=== PATIENT | male | born 1935 | race Caucasian/White ===

== ENCOUNTER → 2016-10-17 | Outpatient (CLI) | payer OTHER ==
--- NOTE | 2016-10-17 11:08 | US ---
Bilateral Duplex Carotid Sonography Clinical Indications: 80-year-old male with a history of hypertension, prior tobacco use, diabetes, a nd of prior stroke/TIA. Evaluate for hemodynamically significant stenosis. Technique: The cervical portions of the carotid and vertebral arteries were imaged and interrogated by color and pulsed Doppler. Spectral analysis was performed. Cine clips are stored on PACS. Comparison Study: Carotid Doppler sonography, dated April 18, 2008. Findings: Right Carotid Artery: The common carotid artery, bifurcation, and origin of the internal and externa l carotid artery are well imaged. Doppler velocity estimates and color Doppler spectra are evaluated . There is extensive atherosclerotic calcific plaque involving the common carotid artery, carotid bul b and bifurcation, and the proximal internal and external carotid arteries with areas of acoustic sha dowing. The peak systolic velocity in the right internal carotid artery is 180 cm/sec, the peak diast olic velocity of 40 cm/sec. As a point of reference, on the prior study, the peak systolic velocity w as 96 cm/sec. This would indicate a current moderate mean diameter stenosis of the least 60%. There i s also severe stenosis of the external carotid artery with a peak systolic velocity of 223 cm/sec. Th e ICA to CCA systolic ratio is mildly elevated at 2.1, and the diastolic ratio is normal. Left Carotid Artery: The common carotid artery, bifurcation, and origin of the internal and external carotid artery are well imaged. Doppler velocity estimates and color Doppler spectra are evaluated, and as on the contralateral side, there is extensive atherosclerotic calcific plaque involving the c ommon carotid artery, bulb and bifurcation, and the proximal internal and external carotid arteries. The peak systolic velocity in the internal carotid artery is 130 cm/sec, with a peak diastolic veloci ty 36 cm/sec. As a point of reference, on the previous exam, the peak systolic velocity internal allen tid artery was 73 cm/sec. There is a severe stenosis of the left external carotid artery, with a peak systolic velocity of 256 cm/sec. The ICA to CCA systolic and diastolic ratios are normal. Vertebral Arteries: Antegrade flow is shown by pulsed Doppler of each vertebral artery. The peak sys tolic velocity in the right vertebral artery is 53 cm/sec, and in the left vertebral artery is 41 cm/ sec. Impression: 1. Extensive bilateral calcific atherosclerotic plaque with progressive stenoses since the previous s tudy in April 2008, with at least a 60% mean diameter stenosis of the right ICA, and at least a 50% me an diameter stenosis of the left ICA. 2. Severe stenoses of the external carotid arteries. 3. Patent, antegrade vertebral arteries. Measurement of carotid stenosis is based on velocity parameters that correlate the residual internal carotid diameter with [place] Symptomatic Carotid Endarterectomy Trial (NASCET) based stenosis levels.
== END ==
LOC: FIMAGING 09:19
PROVIDERS: ATTEND Internal Medicine Endocrinology, Diabetes & Metabolism
DX: I65.23 Occlusion and stenosis of bilateral carotid arteries (principal)

== ENCOUNTER → 2016-11-22 | Outpatient (CLI) | payer OTHER ==
--- NOTE | 2016-11-22 10:01 | US ---
"Ultrasound Abdomen Retroperitoneum, Complete Clinical Indications: N18.3, chronic kidney disease, stage 3; GFR 30-59 mL/min. Comparison: None. Findings: The right kidney measures 11.9 x 6 x 5.2 cm. The left kidney measures 10.9 x 5.2 x 4.6 cm . Both kidneys demonstrate no hydronephrosis, definite shadowing calculi, or perinephric fluid. Righ t renal cortical thickness 1.9 cm and left renal cortical thickness 1.6 cm. In the superolateral uppe r pole left kidney there is a solid, minimally hyperechoic mass with vascular flow measuring 3.1 x 3 x 2.7 cm. Images of the bladder demonstrate patent bilateral ureteral jets with color flow imaging. Prevoid evens dder volume 46 mL. Postvoid bladder residual is 9 mL. No shadowing bladder calculi. Impression: 1. No hydronephrosis. 2. Left kidney upper pole superolateral cortical solid 3.1 x 3 x 2.7 cm mass suspicious for renal aditi l carcinoma. Recommend CT or MRI for further evaluation, or if unable to get contrast, consider CT-gu ided biopsy. A Follow-Up Required test result has been communicated via the [facility] | Critical Result syst em on 11/22/2016 9:50, Message ID [id number]."
== END ==
LOC: FIMAGING 07:41
PROVIDERS: ATTEND Internal Medicine Nephrology
DX: N18.3 Chronic kidney disease, stage 3 (moderate) (principal); R93.422 Abnormal radiologic findings on diagnostic imaging of left kidney

== ENCOUNTER → 2016-12-23 | Outpatient (CLI) | payer OTHER | LOC: BHFA 10:45 | PROVIDERS: ATTEND Internal Medicine Cardiovascular Disease | DX: I25.10 Atherosclerotic heart disease of native coronary artery without angina pectoris (principal); I10 Essential (primary) hypertension ==

== ENCOUNTER → 2017-01-11 | Outpatient (CLI) | payer OTHER ==
[~2017-01-11] MED LIST: GADOBUTROL 10 ML VIAL IVP ONE
[2017-01-11 08:43] LABS: CREATININE 1.7 mg/dL (0.7-1.3)
== END ==
LOC: FIMAGING 07:38
PROVIDERS: ATTEND Specialist
DX: N28.89 Other specified disorders of kidney and ureter (principal); N28.1 Cyst of kidney, acquired; K76.89 Other specified diseases of liver
CPT/HCPCS: 74183; A9585

== ENCOUNTER 2017-05-07 08:44 | Inpatient (IN) | payer OTHER ==
[2017-05-07] MEDS ORDERED: oxyCODONE IR 5 MG TAB PO PRN (12:23)
[2017-05-07] MEDS ORDERED: ACETAMINOPHEN 325 MG TAB PO PRN (12:23)
[2017-05-07] MEDS ORDERED: ONDANSETRON DISINTEGRATING 4 MG TAB PO PRN (12:23)
[2017-05-07] MEDS ORDERED: ONDANSETRON 4 MG/2 ML VIAL IVP PRN (12:23)
[2017-05-07] MEDS ORDERED: D50W 25 GM/50 ML SYR IVP PRN (12:26)
[2017-05-07] MEDS ORDERED: D10W 250 ML PRN HYPOGLYCEMIA IV (13:00)
--- NOTE | 2017-05-07 13:31 | GHP ---
[f rep st] HISTORY AND PHYSICAL DATE OF ADMISSION: 05/07/2017 CHIEF COMPLAINT: Direct admission from [facility]. HISTORY OF PRESENT ILLNESS: This is an 81-year-old man, history of nonischemic dilated cardiomyopat hy, diabetes, and paroxysmal atrial fibrillation, who is sent in by Cardiology. He was seen yesterd ay by Dr. Briones who ordered labs, noted that his creatinine had worsened, thus sent him in for admis yaquelin. He reports a 30-pound weight gain over the last few months. He was previously on furosemide, it is unclear whether he has been compliant with that. He knows he stopped it for a few days as he was quite fatigued, but says that that was only for a few days. He has not changed his diet. He h ad also stopped his Eliquis and metoprolol for a few days as well. He has not had any chest pain. He has ongoing shortness of breath. It is unclear if this is worse. He gets quite dyspneic with an y exertion. He does note lower extremity edema, scrotal edema, as well as increased abdominal girth . PAST MEDICAL/SURGICAL HISTORY: 1. Coronary artery disease, no interventions. He had a catheterization in 2015. 2. Carotid artery disease with modest plaque. Sixty percent stenosis at the right ICA and 50% of t he left ICA. 3. Hyperlipidemia. 4. Hypertension. 5. Nonischemic cardiomyopathy which has improved. Initial echo in February of 2015 with an EF of 35% wh ich improved to 50% on his last echo in December of 2016. 6. Paroxysmal atrial fibrillation. 7. Carpal tunnel release. 8. Hernia. 9. Lumbar surgery. 10. Shoulder surgery. MEDICATIONS: Please see medication reconciliation. ALLERGIES: EVERT inhibitors. FAMILY HISTORY: His mother had a myocardial infarction. His brother had congenital heart disease. SOCIAL HISTORY: He does not drink. He does not smoke. He quit in 1959. He owns a [employer]. REVIEW OF SYSTEMS: A 10-point review of systems is conducted and is negative except per HPI. PHYSICAL EXAM: VITAL SIGNS: Blood pressure 115/58, heart rate 53, respiration rate 18, saturating 96% on room air. GENERAL: The patient is a pleasant man who appears comfortable, in no acute distr ess. HEENT: Normocephalic, atraumatic. CARDIOVASCULAR: Regular rate and rhythm. There are no mu rmurs, rubs, or gallops. PULMONARY: Crackles most predominant at the left base. He is not in any respiratory distress. ABDOMEN: Slightly distended, firm to palpation, though he is nontender with deep palpation. SKIN: No rash. : No Dudley. NEUROLOGIC: Alert and oriented x3, moving all ext remities. PSYCHIATRIC: Normal mood and affect. EXTREMITIES: 3+ bilateral lower extremity edema. LABORATORY DATA: Creatinine is 2.1. Potassium is 4.5, BUN is 62, his BNP is 6890. These are labs from yesterday. DATA: I reviewed his chart, including Dr. Briones's last note. IMPRESSION AND PLAN: This is an 81-year-old man with cardiovascular disease, presents with volume o verload. 1. Volume overload: This is likely acute on chronic congestive heart failure. Initial read of his echocardiogram shows his ejection fraction has not changed. Certainly may be a diastolic component . Seems to be right-sided more than left-sided. May be due to pulmonary hypertension with sleep ap macy. Again, echo is really pending at this point. We will need to diurese him carefully per Cardio logy. We will involve Renal if necessary as his creatinine is currently 2.1, up from 1.7 in January. We will check a chest x-ray, as well as EKG. We will follow daily weights and strict intakes and o utputs. 2. Diabetes mellitus type 2: We will continue his insulin, hold his oral agents, add sliding scale insulin onto his glargine. We will check blood sugars as well. 3. Paroxysmal atrial fibrillation: He is currently regular. EKG is pending. He is on Eliquis as well as metoprolol. 4. Chronic kidney disease: Recent creatinines have ranged from 1.4-2.2. He is currently 2.1 at th e high end of that range. We will follow very closely. 5. Hypertension: I have held his losartan and hydrochlorothiazide for now, he will likely need savannah e antihypertensives. 6. Hyperlipidemia: Simvastatin. 7. Coronary artery disease: Aspirin, Eliquis, metoprolol, simvastatin. 8. Code status is full. /[id number]/MODL
--- NOTE | 2017-05-07 13:42 | CPEKG ---
Heart Rate: 52 RR Interval: 1154 P-R Interval: 252 QRSD Interval: 110 QT Interval: 472 QTC Interval: 439 P Alderson: 64 QRS Alderson: -48 T Wave Alderson: 125 EKG Severity - ABNORMAL ECG - EKG Impression: SINUS ARRHYTHMIA, RATE 45-63 EKG Impression: FIRST DEGREE AV BLOCK EKG Impression: LAD, CONSIDER LEFT ANTERIOR FASCICULAR BLOCK EKG Impression: LOW VOLTAGE IN FRONTAL LEADS EKG Impression: CONSIDER ANTERIOR INFARCT Electronically Signed By: Yon Heredia 07-May-2017 14:55:15
[2017-05-07 13:49] LABS: % IMMATURE GRANULYOCYTES 0.3 % (0.0-1.1); ABSOLUTE IMMATURE GRANULOCYTES 0.02 10^3/uL (0.00-0.10); ADD DIFF? NO; ADD MORPH? NO; ADD SCAN? NO; ATYPICAL LYMPHOCYTE FLAG 0 (0-99); FRAGMENT RBC FLAG 0 (0-99); HEMATOCRIT 39.9 % (40.0-51.0); HEMOGLOBIN 13.1 g/dL (13.7-17.5); LEFT SHIFT FLG 0 (0-99); LIPEMIA HEMOLYSIS FLAG 80 (0-99); MEAN CELL HEMOGLOBIN 33.9 pg (27.9-34.1); MEAN CELL HEMOGLOBIN CONCENTR. 32.8 g/dL (32.4-36.7); MEAN CELL VOLUME 103.4 fL (81.5-99.8); MEAN PLATELET VOLUME 9.9 fL (8.7-11.7); PLATELET CLUMPS FLAG 0 (0-99); PLATELET COUNT 210 10^3/uL (150-400); RED BLOOD CELL COUNT 3.86 10^6/uL (4.40-6.38); RED CELL DISTRIBUTION WIDTH 13.7 % (11.5-15.2)
[2017-05-07 13:53] LABS: INR 1.63 (0.83-1.16); PROTIME(PATIENT) 19.4 SEC (12.0-15.0)
[2017-05-07 13:55] LABS: ALANINE AMINOTRANSFERASE 47 IU/L (21-72); ALBUMIN 4.1 g/dL (3.5-5.0); ALKALINE PHOSPHATASE 169 IU/L (38-126); ANION GAP 16 mEq/L (8-16); ASPARTATE AMINOTRANSFERASE 64 IU/L (17-59); BILIRUBIN,TOTAL 1.1 mg/dL (0.1-1.4); CALCIUM 9.1 mg/dL (8.5-10.4); CARBON DIOXIDE 19 mEq/l (22-31); CHLORIDE 105 mEq/L (97-110); GLOMERULAR FILTRATION RATE 32; GLUCOSE 94 mg/dL (70-100); POTASSIUM 4.3 mEq/L (3.5-5.2); SODIUM 140 mEq/L (134-144); TOTAL PROTEIN 6.9 g/dL (6.3-8.2)
[2017-05-07 14:07] LABS: TROPONIN I 0.093 ng/mL (0-0.034)
--- NOTE | 2017-05-07 14:11 | ECHO ---
[id number] + + [address] : : [place] [address] : : [phone] + + Adult Echocardiographic Report + -------+ :Name: JOSUÉ BULLARD WStudy Date: 05/07/2017 12:13 PM : : Hospital Admission Number: [id number] Locati on: 207: :: 1935 Gender: Male Height: 68 in : :Age: 81 yrs Race: WH Weight: 243 lb : :Reason For Study: Weight gain and SOB : : BSA: 2.2 meter s2 : + -------+ MMode/2D Measurements \T\ Calculations IVSd: 1.5 cm LVIDd: 4.6 cm FS: 25.6 % Ao root diam: LVPWd: 1.2 cm LVIDs: 3.5 cm EDV(Teich): 3.6 cm 99.7 ml LA dimension: ESV(Teich): 4.6 cm 49.4 ml EF(Teich): 50.4 % LVLd ap4: 8.8 cm SV(MOD-sp4): EDV(MOD-sp4): 37.0 ml 73.0 ml LVLs ap4: 7.5 cm ESV(MOD-sp4): 36.0 ml EF(MOD-sp4): 50.7 % Normal Measurement Values: + + :LVIDd (3.5-5.7cm) IVSd (0.6-1.1cm) LVPWd (0.6-1.1cm) Aortic Root (2.0-3.7cm)Left Atrium (1.5-4.0cm): :LV Vol(d) (76-115ml) LV Vol(s) (29-48ml) Ejec Fraction (50-65%)PV Andre (0.6- 1.2m/s) TV Andre (0.4-1.0m/s) : :MV E Andre (0.8-1.0m/s)MV A Andre (0.3-1.0m/s)LVOT Andre (0.7-1.2m/s) Asc Ao Andre ( 0.9-1.8m/s) : + + Doppler Measurements \T\ Calculations MV E max andre: 121.4 cm/sec Ao mean P.4 mmHg TR max andre: 222.6 cm/sec MV A max andre: 25.2 cm/sec Ao V2 mean: 119.3 cm/secTR max P.8 mmHg MV E/A: 4.8 Ao V2 VTI: 35.3 cm RAP systole: 5.0 mmHg RVSP(TR): 24.8 mmHg Left Ventricle The left ventricle is normal in size. There is mild concentric left ventricular hypertrophy. Left ventricular systolic function is normal. There is Doppler evidence for diastolic dysfunction. Ejection Fraction = 55-60%. LV base inferior wall appears akinetic. All remaining LV segments have normal motion. Right Ventricle The right ventricle is normal in size and function. Atria The left atrium is mildly dilated. The right atrium is mild to moderately dilated. The interatrial septum is intact with no evidence for an atrial septal defect. Mitral Valve There is mild mitral annular calcification. There is no evidence of mitral valve prolapse. There is no mitral valve stenosis. There is mild mitral regurgitation. Tricuspid Valve Normal tricuspid valve. Right ventricular systolic pressure is normal. There is moderate tricuspid regurgitation. Aortic Valve The aortic valve is trileaflet. The aortic valve opens well. Mildy aortic valve calficiation. There is no aortic stenosis. Trace aortic regurgitation. Pulmonic Valve The pulmonic valve is normal in structure and function. There is no pulmonic valvular regurgitation. Great Vessels The aortic root is normal size. Pericardium/Pleural There is no pericardial effusion. Conclusion A complete two-dimensional transthoracic echocardiogram was performed (2D, M-mode, Doppler and color flow Doppler). Left ventricular systolic function is normal. Ejection Fraction = 55-60%. LV basilar inferior wall appears akinetic. All remaining LV segments have normal motion. There is mild concentric left ventricular hypertrophy. There is Doppler evidence for diastolic dysfunction. The left atrium is mildly dilated. The right atrium is mild to moderately dilated. Mildy aortic valve calficiation. Trace aortic regurgitation. There is mild mitral annular calcification. There is mild mitral regurgitation. There is moderate tricuspid regurgitation. Right ventricular systolic pressure is normal at 24.8 mmHg. Final Reading Physician: Bright Carreon signed on 05/07/2017 02:10 PM Ordering Physician: Ozzy Cox Performed By: Juliana Foster, RESHMA
[2017-05-07] MEDS ORDERED: FUROSEMIDE 40 MG/4 ML VIAL IVP ONE (14:12)
[2017-05-07] MEDS ORDERED: POTASSIUM CL 20 MEQ TAB PO ONE (14:16)
[2017-05-07] MEDS ORDERED: PROTOCOL POTASSIUM 1 DOSE MISC PRN (14:17)
[2017-05-07] MEDS ORDERED: PROTOCOL MAGNESIUM 1 DOSE IV PRN (14:17)
[2017-05-07] MEDS: FUROSEMIDE 100 MG in D5W 100 ML IV SCH ×2 (14:48→22:52)
--- NOTE | 2017-05-07 17:23 | PDCARPN ---
Cardiology Progress Note Chief Complaint: Patient reports increased swelling, and shortness of breath with exertion. Assessment/Plan: Assessment: Please see Dr. Briones office note from 05/06/2017, to serve as cardiology consultation. 81-year-old male with known history paroxysmal atrial fibrillation, previous nonischemic dilation cardiomyopathy which resolved with medical therapy, hypertension, hyperlipidemia, type 2 diabetes mild non flow limiting carotid artery disease. Most recent cardiac catheterization was 03/2016 , showing no obstructive disease. Limited echocardiogram done June of 2016 showing mild concentric LVH, with improvement of ejection fraction to 50%. Seen in office yesterday, reporting feeling poorly for several months, had self discontinued 3 of his cardiac medications (Eliquis, metoprolol, Lasix) with his thought process of the drugs were causing him to feeling poorly. Has noted a 30 lb weight gain over the last few months. Reporting ongoing orthopnea , sleeping in a recliner. Has significant increased edema, scrotal edema, abdomen girth, and cough. He has had no chest pressure or pain. He was offered hospital admission yesterday, but refused. Laboratory studies were drawn, results came back today. Showing decreased CO2, BUN 62, creatinine 2.1, BNP 6890. Results called our office today, and again offered for hospital admission for further evaluation. In which patient agreed. Today, upon hospital admission, patient continues to deny of any chest pressure or pain. Continues to have dyspnea on exertion, walking less than 200 feet up, having to stop for rest. Patient's BUN creatinine essentially unchanged,. BNP more elevated at 7090. Troponin 0.093. EKG showing sinus arrhythmia, first- degree AV block, left axis deviation, low voltage in frontal leads, possible anterior infarction, poor R-wave progression. Echo done today showing EF of 55- 60% with mild LV basilar inferior wall you akinesis, mild concentric LVH, diastolic dysfunction, mildly dilated LA, [id number] dilated RA, mild aortic valve calcification, trace AI, mild mitral annular calcification, mild MR moderate TR, RVSP 24.8 mm Hg. Chest x-ray showed cardiomegaly a without heart failure. He has significant JVD on examination 8 cm at 45 angle. +3 peripheral edema bilateral lower extremities to thighs, scrotal edema, abdomen firm. Plan: 1. Anasarca: Echocardiogram shows no significant change in ejection fraction, potentially diastolic dysfunction contributing to. Patient with known history of discontinuing diuretic therapy in the beginning of April. 30 lb weight gain. JVD and significant peripheral and abdominal edema. BUN 60, creatinine 2.1 ( patient's average range in the past hospitalization range 1.7 to 2.1). After discussing with Dr. Araujo, we will have the patient get a 40 mg IV Lasix post today, started on an ice V Lasix drip at 10 mg an hour. We will have to closely observe his renal function. Placed on electrolyte replacement protocol. Strict I and O. Daily weights 2. Chronic kidney disease with renal insufficiency, BUN and creatinine elevated as above, will monitor closely. 3. Hypertension: Patient has been continued on home dose beta-lucio, agree with hospital services of discontinuing losartan and hydrochlorothiazide why we diuresed patient. Note patient was noted to be mildly bradycardic yesterday, and Dr. Briones has decreased his metoprolol dose down to 25 mg p.o. twice daily. 4. Elevated troponin: Mildly elevated troponin, echocardiogram showed mild LV basilar inferior wall akinesis, has had a coronary angiogram in 2015 showing no significant flow limiting disease. Continue on home dose aspirin therapy. Beta-lucio as above, cycle troponin levels. Potentially elevation is due to flow mismatch due to volume status. 5. hyperlipidemia: Continue on home statin. 6. Paroxysmal atrial fibrillation: Currently in sinus rhythm, metoprolol as above, continue on Eliquis for anticoagulation. 7. DM type 2: Being followed by hospital services. 05/07/17 17:22 Subjective: Patient denies of any chest pressure, pain, lightheadedness, palpitations, near- syncope, or syncopal events. Reports ongoing dyspnea on exertion, weight gain of 30 lb, and orthopnea. Reviewed/Discussed With: hospitalist (Dr Peter), other (Dr Araujo) Objective: Vital Signs (8 Hrs) Temp Pulse Resp BP Pulse Ox 05/07/17 15:53 36.5 C 54 L 16 129/74 H 95 05/07/17 11:10 53 L 18 115/58 L 96 Intake/Output (24 Hrs) 05/06/17 05/07/17 05/08/17 05:59 05:59 05:59 Intake Total 300 Output Total 1150 Balance -850 Intake: Oral (ml) 300 Output: Urine (ml) 1150 Urinal 1150 Other: Weight 110.5 kg Number of Voids Toilet 3 Result Diagrams: 05/07/17 11:47 05/08/17 03:43 Cardiac Labs: Cardiac Lab Results (72 Hrs) 05/07/17 05/07/17 05/07/17 14:14 11:47 11:47 WBC RBC Hgb Hct MCV MCH MCHC RDW Plt Count MPV Neut % (Auto) Lymph % (Auto) Colbert % (Auto) Eos % (Auto) Baso % (Auto) Nucleat RBC Rel Count Absolute Neuts (auto) Absolute Lymphs (auto) Absolute Monos (auto) Absolute Eos (auto) Absolute Basos (auto) Absolute Nucleated RBC Immature Gran % Immature Gran # PT 19.4 H INR 1.63 H Sodium 140 Potassium 4.3 Chloride 105 Carbon Dioxide 19 L Anion Gap 16 BUN 61 H Creatinine 2.0 H Estimated GFR 32 Glucose 94 Calcium 9.1 Magnesium 2.1 Total Bilirubin 1.1 AST 64 H ALT 47 Alkaline Phosphatase 169 H Troponin I 0.093 H NT-Pro-B Natriuret Pep 7090 H Total Protein 6.9 Albumin 4.1 05/07/17 11:47 WBC 7.21 RBC 3.86 L Hgb 13.1 L Hct 39.9 L MCV 103.4 H MCH 33.9 MCHC 32.8 RDW 13.7 Plt Count 210 MPV 9.9 Neut % (Auto) 75.1 H Lymph % (Auto) 11.8 L Colbert % (Auto) 8.9 Eos % (Auto) 3.3 Baso % (Auto) 0.6 Nucleat RBC Rel Count 0.0 Absolute Neuts (auto) 5.42 Absolute Lymphs (auto) 0.85 L Absolute Monos (auto) 0.64 Absolute Eos (auto) 0.24 Absolute Basos (auto) 0.04 Absolute Nucleated RBC 0.00 Immature Gran % 0.3 Immature Gran # 0.02 PT INR Sodium Potassium Chloride Carbon Dioxide Anion Gap BUN Creatinine Estimated GFR Glucose Calcium Magnesium Total Bilirubin AST ALT Alkaline Phosphatase Troponin I NT-Pro-B Natriuret Pep Total Protein Albumin - Physical Exam Constitutional: no apparent distress, obese, other (Anasarca) Ears, Nose, Mouth, Throat: moist mucous membranes Cardiovascular: regular rate and rhythm, no rubs, no gallops, systolic murmur (2 /6 left sternal border.), jugular vein distention (8 cm at a 45 degree angle.), pulses symmetric bilat, No carotid bruit Peripheral Pulses: 1+: dorsalis-pedis (R), dorsalis-pedis (L), 2+: carotid (R), carotid (L) Respiratory: other (Clear, but diminished in bases bilateral, no rhonchi, rales , or wheezing noted.) Gastrointestinal: normoactive bowel sounds, no masses, other (Abdomen firm to palpitations) Skin: warm, No no edema (+3 peripheral edema bilateral lower extremities to thighs, scrotal edema, and abdomen firm his.) Neurologic: AAOx3 Psychiatric: cooperative, interactive, following commands ICD10 Worksheet Patient Problems: Problems Problem Status Onset Anasarca Acute Combined systolic and diastolic heart failure Acute - ICD10 Problem Qualifiers (1) Anasarca (2) Combined systolic and diastolic heart failure Qualifiers: Heart failure chronicity: H
--- NOTE | 2017-05-07 17:38 | WOCRNPDOC ---
WOCRN Advanced Assessment Note - Skin Integrity Problem, Advanced Assess Left Lower Medial Leg Vesicles (closed) Dressing Type: Open to Air Kalyn Wound Tissue: Erythema Marked by Wound RN Extremity Temperature: Warm Skin Integrity Problem Comment: Two discrete raised patches of erythema. The smaller more proximal circular area may have some fluid underneat the skin, but it is difficult to tell. There are also two pustules on posterior lower leg. No wounds at this time. Wound care will sign off. Please reconsult prn. Tom RUIZ in room for care.
[2017-05-07] MEDS: INSULIN LISPRO 100 UNIT/ML SC SCH (18:21)
[2017-05-07 18:48] LABS: ANION GAP 16 mEq/L (8-16); CALCIUM 9.4 mg/dL (8.5-10.4); CARBON DIOXIDE 21 mEq/l (22-31); CHLORIDE 103 mEq/L (97-110); GLOMERULAR FILTRATION RATE 32; GLUCOSE 99 mg/dL (70-100); POTASSIUM 4.5 mEq/L (3.5-5.2); SODIUM 140 mEq/L (134-144)
[2017-05-07] MEDS ORDERED: INSULIN GLARGINE HUM REC ANLOG SQ SCH (21:00)
[2017-05-07] MEDS ORDERED: NON-FORMULARY NEW DRUG (Simvastatin [Zocor 20 Mg] 20 MG) PO SCH (21:00)
[2017-05-07] MEDS: APIXABAN 5 MG TAB PO SCH (21:18)
[2017-05-07] MEDS: ASPIRIN 81 MG CHEWABLE TAB PO SCH (21:19)
[2017-05-07] MEDS: ATORVASTATIN CALCIUM 10 MG TAB PO SCH (21:19)
[2017-05-07] MEDS: METOPROLOL TARTRATE 25 MG TAB PO SCH (21:19)
[2017-05-07] MEDS: INSULIN GLARGINE 100 UNITS/ML SYRINGE SC SCH (21:21)
[2017-05-08 05:26] LABS: ANION GAP 16 mEq/L (8-16); CALCIUM 9.4 mg/dL (8.5-10.4); CARBON DIOXIDE 25 mEq/l (22-31); CHLORIDE 101 mEq/L (97-110); CREATININE 1.9 mg/dL (0.7-1.3); GLOMERULAR FILTRATION RATE 34; GLUCOSE 93 mg/dL (70-100); POTASSIUM 3.9 mEq/L (3.5-5.2); SODIUM 142 mEq/L (134-144)
[2017-05-08 05:34] LABS: TROPONIN I 0.126 ng/mL (0-0.034)
[2017-05-08] MEDS ORDERED: POTASSIUM CL 10 MEQ TAB PO ONE ×2 (08:43→20:22)
[2017-05-08] MEDS: INSULIN LISPRO 100 UNIT/ML SC SCH ×3 (08:48→19:09)
[2017-05-08] MEDS: FUROSEMIDE 100 MG in D5W 100 ML IV SCH ×2 (09:54→20:13)
[2017-05-08] MEDS: METOPROLOL TARTRATE 25 MG TAB PO SCH ×2 (10:05→21:12)
[2017-05-08] MEDS: APIXABAN 5 MG TAB PO SCH ×2 (10:05→21:12)
--- NOTE | 2017-05-08 12:28 | PDCARPN ---
Cardiology Progress Note Chief Complaint: Patient reports ongoing shortness of breath. But improvement. Assessment/Plan: Assessment: 81-year-old male with known history paroxysmal atrial fibrillation, previous nonischemic dilation cardiomyopathy which resolved with medical therapy, hypertension, hyperlipidemia, type 2 diabetes mild non flow limiting carotid artery disease. Most recent cardiac catheterization was 03/2016, showing no obstructive disease. Limited echocardiogram done June of 2016 showing mild concentric LVH, with improvement of ejection fraction to 50%. Seen in office, 05/06/2017 , reporting feeling poorly for several months, had self discontinued 3 of his cardiac medications (Eliquis, metoprolol, Lasix) with his thought process of the drugs were causing him to feeling poorly. Has noted a 30 lb weight gain over the last few months. Reporting ongoing orthopnea, sleeping in a recliner. Has significant increased edema, scrotal edema, abdomen girth, and cough. He has had no chest pressure or pain. Was offered hospital admission on the day office visit, but refused. Laboratory studies were drawn during office visit, results came back today. Showing decreased CO2 , BUN 62, creatinine 2.1, BNP 6890. Results called to the patient on 05/07, again offered hospital admission which patient agreed. BNP on 05/06 7090 and Trop 0.093. Also BUN 60 and creat 2.1 (patient average 1.7-2.1). Echo on 05/07 EF of 55-60% with LV basilar inferior wall appears akinetic, rest LV segments are normal motion , mild concentric LVH, diastolic dysfunction, mildly dilated LA, [id number] dilated RA, mild aortic valve calcification, trace AI, mild mitral annular calcification, mild MR moderate TR, RVSP 24.8 mm Hg. EKG sinus arrhythmia, first-degree AV block, left axis deviation, low voltage in frontal leads, possible anterior infarction, poor R-wave progression. Patient with past history of cardiac catheterization in 2015 showing no flow limiting disease. Patient started on IV Lasix drip afternoon of 05/07. Today, patient is down 3.5 L from yesterday. Mild improvement in peripheral edema, abdomen is not quite is firm. Denies of any chest pressure or pain. Troponin more elevated today at 0.126. BUN 60, creatinine 1.9, essentially unchanged from yesterday. No arrhythmias noted on continuous cardiac monitoring. Patient reports improvement in shortness of breath, mild improvement in peripheral edema. Plan: 1. Diastolic heart failure/Anasarca: Echocardiogram shows no significant change in ejection fraction, LVH, diastolic dysfunction. Patient is down 3.5 L per I&Os, weight also reduced. Mild improvement in peripheral edema and abdomen swelling. Continue on current Lasix drip rate. Continue monitoring electrolytes, electrolyte protocol in place. 2. Chronic kidney disease with renal insufficiency: BUN creatinine improved from admission. Continue to monitor closely. 3. Hypertension: Patient has been continued on home dose beta-lucio, home dose losartan hydrochlorothiazide have been held while on Lasix drip. BP within normal limits. Continue to monitor. 4. CAD/Elevated troponin: Troponin up today at 0.126 from 0.093, echocardiogram showed LV basilar inferior wall appears akinetic with the rest of LV wall motion normal, has had a coronary angiogram in 2016 showing no significant flow limiting disease. Patient reports no chest pain or symptoms suggesting of ischemia. Potentially troponin elevation due to flow mismatch due to volume status, but with continuation of elevation, will need to be further evaluated for ischemia. We will plan to continue trending his troponins. Continue on home dose of aspirin therapy, beta-lucio, and aspirin. With renal status, concerned about taking him to the cardiac catheterization. Will consider Sona MPI if troponins trended down, if continue to trend up, then will have to consider cardiac catheterization. 5. hyperlipidemia: Continue on home statin. 6. Paroxysmal atrial fibrillation: Currently in sinus rhythm, metoprolol as above, continue on Eliquis for anticoagulation. 7. DM type 2: Being followed by hospital services. 05/08/17 12:18 Subjective: Patient denies of any chest pressure or pain, continues to experience orthopnea , and shortness of breath. Denies of any palpitations, lightheadedness, near- syncope, or syncopal events. Reviewed/Discussed With: hospitalist (Dr Israel), other (Dr Araujo) Objective: Vital Signs (8 Hrs) Temp Pulse Resp BP Pulse Ox 05/08/17 11:36 36.7 C 59 L 13 124/70 H 95 05/08/17 07:25 36.4 C 67 9 L 130/72 H 96 Intake/Output (24 Hrs) 05/07/17 05/08/17 05/09/17 05:59 05:59 05:59 Intake Total 975 236 Output Total 4600 1225 Balance -3419 -456 Intake: Oral (ml) 850 236 IV Infused (ml) 125 Furosemide 100 mg In D5w 125 100 ml @ 10 MG/HR 10 mls/ hr IV CONT BAKARI Rx#: [id number] Output: Urine (ml) 4600 1225 Urinal 4600 1225 Other: Weight 104.2 kg 102.7 kg Number of Voids Toilet 3 Urinal 2 Result Diagrams: 05/07/17 11:47 05/08/17 03:43 Cardiac Labs: Cardiac Lab Results (72 Hrs) 05/08/17 05/07/17 03:43 11:47 Troponin I 0.126 H 0.093 H - Physical Exam Constitutional: no apparent distress, obese Ears, Nose, Mouth, Throat: moist mucous membranes Cardiovascular: regular rate and rhythm, no rubs, systolic murmur (1 to 2/6 left sternal border), jugular vein distention (6th cm above sternal notch at a 45 degree angle), pulses symmetric bilat, No carotid bruit Peripheral Pulses: 1+: dorsalis-pedis (R), dorsalis-pedis (L), 2+: carotid (R), carotid (L) Respiratory: other (Diminished in bases bilateral, no rhonchi, rales, or wheezing noted.) Gastrointestinal: normoactive bowel sounds, other (Abdomen firm and distended, improvement from yesterday.) Skin: warm, No no edema (+ 3 peripheral edema bilateral lower extremities to thighs. Scrotal edema. Abdomen firm this. Facial edema.) Neurologic: AAOx3 Psychiatric: cooperative, interactive, following commands ICD10 Worksheet Patient Problems: Problems Problem Status Onset Anasarca Acute Combined systolic and diastolic heart failure Acute - ICD10 Problem Qualifiers (1) Anasarca (2) Combined systolic and diastolic heart failure Qualifiers: Heart failure chronicity: H
--- NOTE | 2017-05-08 17:42 | HOSPPROG ---
Hospitalist Progress Note Assessment/Plan: Assessment: 81 yo M p/w acute diastolic and right-sided CHF exacerbation Plan: 1. Acute diastolic and Right-sided CHF exacerbation. Evidenced by 30lb weight gain, hypervolemic on physical exam, BNP 7100 w/ increase morbidity risk of elevated troponin indicating myocardial strain - CXR w/ significant cardiomegally (personally interpreted) - diuresing well w/ lasix gtt, continue - monitor strict I/O/weights 2. SAUMYA on CKD Stage III. Present Cr elevated from baseline, improving w/ diuresis as this allows improved CO and renal perfusion - cont monitor Cr, UOP 3. Hypertension. Chronic, continued on half home dose beta-lucio - holding ARB/HCTZ while on lasix gtt 4. CAD. Chronic, elevated trop likely 2/2 CHF, d/w Ozzy Hannahsteen from cardiology, we agree that stress test next if trops downtrending 5. Paroxysmal atrial fibrillation. Currently in sinus rhythm, metoprolol as above, continue on Eliquis for anticoagulation. Diet. Diabetic PPx. High risk, on eliquis Code. Full Dispo. ADD uncertain, remains very hypervolemic and on lasix gtt Subjective: reports ongoing lower extremity edema, abdominal distension Objective: Vital Signs Temp Pulse Resp BP Pulse Ox 36.5 C 73 13 143/74 H 97 05/08/17 16:00 05/08/17 16:00 05/08/17 16:00 05/08/17 16:00 05/08/17 16:00 Laboratory Results 05/07/17 11:47 05/08/17 03:43 05/07/17 05/08/17 05/09/17 05:59 05:59 05:59 Intake Total 975 976 Output Total 4600 3335 Balance -6264 -5111 PT 19.4 SEC (12.0-15.0) H 05/07/17 11:47 INR 1.63 (0.83-1.16) H 05/07/17 11:47 - Physical Exam Constitutional: no apparent distress, appears nourished, not in pain, obese Cardiovascular: systolic murmur ( distant, 1/6 at sternum and apex), JVD, edema ( tense 2+ edema bilateral lower extremities), No irregularly irregular, No tachycardia Respiratory: no respiratory distress, no rales or rhonchi, clear to auscultation Gastrointestinal: normoactive bowel sounds, distension ( moderately), No tenderness, No guarding Neurologic: AAOx3, sensation intact bilaterally, No facial droop Psychiatric: interacting appropriately, not anxious, not encephalopathic, thought process linear ICD10 Worksheet Patient Problems: Problems Problem Status Onset Anasarca Acute Combined systolic and diastolic heart failure Acute
[2017-05-08 18:58] LABS: POTASSIUM 3.8 mEq/L (3.5-5.2)
[2017-05-08] MEDS: ATORVASTATIN CALCIUM 10 MG TAB PO SCH (21:12)
[2017-05-08] MEDS: ASPIRIN 81 MG CHEWABLE TAB PO SCH (21:12)
[2017-05-08] MEDS: INSULIN GLARGINE 100 UNITS/ML SYRINGE SC SCH (21:15)
[2017-05-09 05:26] LABS: ALBUMIN 4.1 g/dL (3.5-5.0); ANION GAP 19 mEq/L (8-16); CALCIUM 9.6 mg/dL (8.5-10.4); CARBON DIOXIDE 27 mEq/l (22-31); CHLORIDE 98 mEq/L (97-110); CREATININE 1.6 mg/dL (0.7-1.3); GLOMERULAR FILTRATION RATE 42; GLUCOSE 111 mg/dL (70-100); MAGNESIUM 1.8 mg/dL (1.6-2.3); POTASSIUM 4.3 mEq/L (3.5-5.2); SODIUM 144 mEq/L (134-144)
[2017-05-09] MEDS: FUROSEMIDE 100 MG in D5W 100 ML IV SCH (05:28)
[2017-05-09 05:48] LABS: TROPONIN I 0.166 ng/mL (0-0.034)
[2017-05-09] MEDS: METOPROLOL TARTRATE 25 MG TAB PO SCH ×2 (10:11→20:20)
[2017-05-09] MEDS: INSULIN LISPRO 100 UNIT/ML SC SCH ×3 (10:11→17:07)
[2017-05-09] MEDS ORDERED: MAGNESIUM SULF 1 GM/DEXTROSE 100 ML IV ONE (12:30)
--- NOTE | 2017-05-09 15:09 | PDCARPN ---
Cardiology Progress Note Chief Complaint: Patient reports he would like to go home. Assessment/Plan: Assessment: 81-year-old male with known history paroxysmal atrial fibrillation, previous nonischemic dilation cardiomyopathy which resolved with medical therapy, hypertension, hyperlipidemia, type 2 diabetes mild non flow limiting carotid artery disease. Most recent cardiac catheterization was 03/2016, showing no obstructive disease. Limited echocardiogram done June of 2016 showing mild concentric LVH, with improvement of ejection fraction to 50%. Seen in office, 05/06/2017 , reporting feeling poorly for several months, had self discontinued 3 of his cardiac medications (Eliquis, metoprolol, Lasix) with his thought process of the drugs were causing him to feeling poorly. Has noted a 30 lb weight gain over the last few months. Reporting ongoing orthopnea, sleeping in a recliner. Has significant increased edema, scrotal edema, abdomen girth, and cough. He has had no chest pressure or pain. Was offered hospital admission on the day office visit, but refused. Laboratory studies were drawn during office visit, results came back today. Showing decreased CO2 , BUN 62, creatinine 2.1, BNP 6890. Results called to the patient on 05/07, again offered hospital admission which patient agreed. BNP on 05/06 7090 and Trop 0.093. Also BUN 60 and creat 2.1 (patient average 1.7-2.1). Echo on 05/07 EF of 55-60% with LV basilar inferior wall appears akinetic, rest LV segments are normal motion , mild concentric LVH, diastolic dysfunction, mildly dilated LA, [id number] dilated RA, mild aortic valve calcification, trace AI, mild mitral annular calcification, mild MR moderate TR, RVSP 24.8 mm Hg. EKG sinus arrhythmia, first-degree AV block, left axis deviation, low voltage in frontal leads, possible anterior infarction, poor R-wave progression. Patient with past history of cardiac catheterization in 2015 showing no flow limiting disease. Patient started on IV Lasix drip afternoon of 05/07. Today, patient's continues to lose weight, he has had a another 2 L out overnight. He has had an improvement in his peripheral edema, and his abdomen girth and firmness has decreased significantly. He reports no chest pressure or pain, denies of significant shortness of breath. Unfortunately, his troponin continues to elevate from yesterday to today, 0.126-0.166. Improvement in BUN creatinine, today 52 and 1.6. Patient has remained in sinus rhythm, occasional premature ventricular contraction noted on continuous electrocardiogram, no malignant arrhythmias or pauses noted. Plan: 1. Diastolic heart failure/RHF/Anasarca: Patient is down a total of 10 L since hospital admission. He has had improvement in his peripheral edema and abdomen firmness. Patient is fatigued with constant urination, and has not been sleeping well. Have discussed this with Dr. Israel and we will discontinue his continuous IV Lasix dosage, and start him on IV bolus of Lasix at 40 mg p.o. twice daily. Continue monitoring I&Os. Potentially patient can be switched over to oral diuretics tomorrow, pending on how he does with bolus Lasix. Continue monitoring electrolytes closely, electrolyte protocol still in place. 2. Chronic kidney disease with renal insufficiency: BUN creatinine continue to improve with diuresis. Today 52 and 1.6. Continue to monitor. 3. Hypertension: Patient has been continued on home dose beta-lucio, home dose losartan hydrochlorothiazide. Continue to hold at this time, with consideration of restarting losartan, in the next day or two 4. CAD/Elevated troponin: Troponin up today at 0.166 from 0.126, echocardiogram showed LV basilar inferior wall appears akinetic with the rest of LV wall motion normal, has had a coronary angiogram in 2016 showing no significant flow limiting disease. Patient reports no chest pain or symptoms suggesting of ischemia. Potentially troponin elevation due to flow mismatch due to volume status, but with continuation of elevation, will need to be further evaluated for ischemia. We will plan to continue trending his troponins. Continue on home dose of aspirin therapy, beta-lucio, and aspirin. With renal status, concerned about taking him to the cardiac catheterization. Will consider Sona MPI if troponins trended down, if continue to trend up, then will have to consider cardiac catheterization. 5. Hyperlipidemia: Continue on home statin. 6. Paroxysmal atrial fibrillation: Currently in sinus rhythm, metoprolol as above, continue on Eliquis for anticoagulation. 7. DM type 2: Being followed by hospital services. 05/09/17 15:07 Subjective: Patient denies of any chest pressure, pain orthopnea, PND, palpitations, or near -syncope. Reports improvement in his peripheral edema, also reporting abdomen is not as firm. Does admit that he has not been sleeping well due to constant need for urination. Reviewed/Discussed With: hospitalist (Dr Israel), other (Dr Araujo) Objective: Vital Signs (8 Hrs) Temp Pulse Resp BP Pulse Ox 05/09/17 11:14 36.4 C 80 18 126/66 H 95 05/09/17 07:26 36.5 C 79 11 L 113/59 L 93 Intake/Output (24 Hrs) 05/08/17 05/09/17 05/10/17 05:59 05:59 05:59 Intake Total 975 1658 240 Output Total 4600 6450 2220 Balance -4095 -4572 -0036 Intake: Oral (ml) 850 1416 240 IV Infused (ml) 125 242 Furosemide 100 mg In D5w 125 242 100 ml @ 10 MG/HR 10 mls/ hr IV CONT BAKARI Rx#: [id number] Output: Urine (ml) 4600 6450 2220 Urinal 4600 6450 2220 Other: Weight 104.2 kg 96.6 kg Number of Voids Toilet 3 Urinal 3 Result Diagrams: 05/07/17 11:47 05/09/17 03:46 Cardiac Labs: Cardiac Lab Results (72 Hrs) 05/09/17 05/08/17 05/07/17 03:46 03:43 11:47 Troponin I 0.166 H 0.126 H 0.093 H - Physical Exam Constitutional: no apparent distress, obese Ears, Nose, Mouth, Throat: moist mucous membranes Cardiovascular: regular rate and rhythm, no murmurs, no rubs, jugular vein distention (5 cm above sternal notch at 45 degree angle.), pulses symmetric bilat Peripheral Pulses: 1+: dorsalis-pedis (R), dorsalis-pedis (L), 2+: carotid (R), carotid (L) Respiratory: other (Lungs are clear, but diminished in bases bilateral. No rhonchi, rales, or wheezing noted. No accessary muscle use, no intercostal muscle retraction noted.) Gastrointestinal: normoactive bowel sounds, other (Abdomen is firm, but improved since yesterday.) Skin: warm, No no edema (+3 peripheral edema bilateral lower extremities to thighs,) Neurologic: AAOx3 Psychiatric: cooperative, interactive, following commands ICD10 Worksheet Patient Problems: Problems Problem Status Onset Anasarca Acute Combined systolic and diastolic heart failure Acute - ICD10 Problem Qualifiers (1) Anasarca (2) Combined systolic and diastolic heart failure Qualifiers: Heart failure chronicity: H
[2017-05-09] MEDS: FUROSEMIDE 40 MG/4 ML VIAL IVP SCH (15:51)
--- NOTE | 2017-05-09 17:50 | HOSPPROG ---
Hospitalist Progress Note Assessment/Plan: Assessment: 81 yo M p/w acute diastolic and right-sided CHF exacerbation Plan: 1. Acute diastolic and Right-sided CHF exacerbation. Evidenced by 30lb weight gain, hypervolemic on physical exam, BNP 7100 w/ increase morbidity risk of elevated troponin indicating myocardial strain - net neg 4.5L o/n - diuresing well w/ lasix gtt, adjust to 40mg IV bid now and consider transition to orals tomorrow - monitor strict I/O/weights 2. SAUMYA on CKD Stage III. Present Cr elevated from baseline, improving w/ diuresis as this allows improved CO and renal perfusion - cont monitor Cr, UOP 3. Hypertension. Chronic, continued on half home dose beta-lucio - holding ARB/HCTZ while on lasix IV 4. CAD. Chronic, elevated trop likely 2/2 CHF, d/w Ozzy Bhavya from cardiology, we agree that stress test in outpt setting 5. Paroxysmal atrial fibrillation. Currently in sinus rhythm, metoprolol as above, continue on Eliquis for anticoagulation. - patient not adherent to bblocker in outpatient setting, continue to encourage use Diet. Diabetic PPx. High risk, on eliquis Code. Full Dispo. ADD uncertain, remains very hypervolemic and on lasix IV Subjective: counseled the patient extensively regarding his diagnosis of predominantly right-sided heart failure requiring ongoing use IV Lasix, plan to transition to oral, counseled him that this will most likely require another 24- 48 hours in order to conduct this safely Objective: Vital Signs Temp Pulse Resp BP Pulse Ox 36.6 C 76 19 145/71 H 97 05/09/17 16:00 05/09/17 16:00 05/09/17 16:00 05/09/17 16:00 05/09/17 16:00 Laboratory Results 05/07/17 11:47 05/09/17 03:46 05/08/17 05/09/17 05/10/17 05:59 05:59 05:59 Intake Total 975 1658 440 Output Total 4609 7694 2273 Balance -0525 -9891 -2850 PT 19.4 SEC (12.0-15.0) H 05/07/17 11:47 INR 1.63 (0.83-1.16) H 05/07/17 11:47 - Time Spent With Patient Time Spent with Patient: greater than 35 minutes Time Spent with Patient: Greater than 35 minutes spent on this patients care, greater than 50% of time spent counseling, educating, and coordinating care regarding the above mentioned plan. - Physical Exam Constitutional: no apparent distress, not in pain, obese, No uncomfortable Cardiovascular: edema (2+ bilat LE), No systolic murmur (distant heart sounds), No tachycardia Respiratory: no respiratory distress, no rales or rhonchi, clear to auscultation Gastrointestinal: distension (mod-sev), No tenderness, No guarding Neurologic: AAOx3 Psychiatric: interacting appropriately, not anxious, not encephalopathic, thought process linear ICD10 Worksheet Patient Problems: Problems Problem Status Onset Anasarca Acute Combined systolic and diastolic heart failure Acute
[2017-05-09 18:30] LABS: POTASSIUM 3.7 mEq/L (3.5-5.2)
[2017-05-09] MEDS: ASPIRIN 81 MG CHEWABLE TAB PO SCH (20:19)
[2017-05-09] MEDS: ATORVASTATIN CALCIUM 10 MG TAB PO SCH (20:20)
[2017-05-09] MEDS: APIXABAN 5 MG TAB PO SCH (20:20)
[2017-05-09] MEDS: INSULIN GLARGINE 100 UNITS/ML SYRINGE SC SCH (21:02)
[2017-05-10] MEDS ORDERED: POTASSIUM CL 10 MEQ TAB PO ONE (00:54)
[2017-05-10 05:43] LABS: ANION GAP 17 mEq/L (8-16); CALCIUM 9.7 mg/dL (8.5-10.4); CARBON DIOXIDE 28 mEq/l (22-31); CHLORIDE 97 mEq/L (97-110); CREATININE 1.4 mg/dL (0.7-1.3); GLOMERULAR FILTRATION RATE 49; GLUCOSE 128 mg/dL (70-100); MAGNESIUM 1.9 mg/dL (1.6-2.3); POTASSIUM 3.7 mEq/L (3.5-5.2); SODIUM 142 mEq/L (134-144)
[2017-05-10] MEDS: INSULIN LISPRO 100 UNIT/ML SC SCH ×3 (09:03→17:33)
[2017-05-10] MEDS: APIXABAN 5 MG TAB PO SCH ×2 (09:29→20:32)
[2017-05-10] MEDS: METOPROLOL TARTRATE 25 MG TAB PO SCH ×2 (09:29→20:32)
[2017-05-10] MEDS: FUROSEMIDE 40 MG/4 ML VIAL IVP SCH (09:30)
--- NOTE | 2017-05-10 09:52 | SOAPPROG ---
SOAP Progress Note Assessment/Plan: Assessment: 81 y/o man with acute on chronic diastolic CHF, PAF, HTN , CRI and medical non- compliance. He has diuresed and still a little hypervolemic but close to euvolemic. PLAN: 1)change IV lasix to Lasix 60mg PO BID 2)rest of meds without changes. 3)KCL 40meq PO x 1 now. 4)AM labs tommorrow (CBC, BMP and BNP level) 5)probably home Friday05/10/17 09:45 Subjective: feels better. Abdominal bloating and leg swelling improving but not gone yet. Denies CP, palpitations, PND or syncope. Ambulating hallways without sx. Objective: Vital Signs Temp Pulse Resp BP Pulse Ox 36.5 C 73 14 111/65 96 05/10/17 08:00 05/10/17 08:00 05/10/17 04:00 05/10/17 08:00 05/10/17 08:00 Laboratory Results 05/07/17 11:47 05/10/17 04:17 05/09/17 05/10/17 05/11/17 05:59 05:59 05:59 Intake Total 1658 850 Output Total 6450 3920 Balance -4792 -3070 PT 19.4 SEC (12.0-15.0) H 05/07/17 11:47 INR 1.63 (0.83-1.16) H 05/07/17 11:47 Physical Exam - Physical Exam EENT: normal ENT inspection Neck: non-tender Respiratory: lungs clear Cardiac/Chest: regular rate, rhythm, systolic murmur (1/6 SEAN.) Peripheral Pulses: 2+: carotid (R), carotid (L), femoral (R), femoral (L), dorsalis-pedis (R), dorsalis-pedis (L) Abdomen: non-tender, No organomegaly, No hepatomegaly, No splenomegaly Skin: warm/dry Extremities: pedal edema (1+ bilateral edema to just below level of knees.) Neuro/Psych: alert ICD10 Worksheet Patient Problems: Problems Problem Status Onset Anasarca Acute Combined systolic and diastolic heart failure Acute
[2017-05-10] MEDS ORDERED: DULAGLUTIDE 0.75 MG SQ SCH (12:25)
[2017-05-10] MEDS ORDERED: (Dulaglutide [Trulicity] 0.75 MG) SQ SCH (12:32)
[2017-05-10] MEDS: FUROSEMIDE 40 MG TAB PO SCH (15:37)
--- NOTE | 2017-05-10 18:32 | HOSPPROG ---
Hospitalist Progress Note Assessment/Plan: Assessment: 81 yo M p/w acute diastolic and right-sided CHF exacerbation Plan: 1. Acute diastolic and Right-sided CHF exacerbation. Evidenced by 30lb weight gain, hypervolemic on physical exam, BNP 7100 w/ increase morbidity risk of elevated troponin indicating myocardial strain - net neg 3L o/n - d/w Dr. Wheeler, he recommends adjusting to lasix 60mg PO bid and gauging whether patient can maintain a net negative effect on this dosing prior to discharging home - monitor strict I/O/weights 2. SAUMYA on CKD Stage III. Present Cr elevated from baseline, improving w/ diuresis as this allows improved CO and renal perfusion - cont monitor Cr, UOP 3. Hypertension. Chronic, continued on half home dose beta-lucio - holding ARB/HCTZ while on lasix 4. CAD. Chronic, elevated trop likely 2/2 CHF, d/w Ozzy Brooke from cardiology, we agree that stress test in outpt setting 5. Paroxysmal atrial fibrillation. Currently in sinus rhythm, metoprolol as above, continue on Eliquis for anticoagulation. - patient not adherent to bblocker in outpatient setting, continue to encourage use 6. DM2. Counseled patient that use of metformin may be dangerous moving forward w/ his CKD, and encouraged use of lantus w/ bolus short-acting Diet. Diabetic PPx. High risk, on eliquis Code. Full Dispo. ADD uncertain, remains very hypervolemic and monitoring lasix effect Subjective: patient curious what medications he is going to go home on, counseled him that metformin may have potential safety issue with chronic kidney disease, counseled regarding insulin usage Objective: Vital Signs Temp Pulse Resp BP Pulse Ox 36.6 C 78 14 121/73 H 98 05/10/17 16:00 05/10/17 16:00 05/10/17 04:00 05/10/17 16:00 05/10/17 16:00 Laboratory Results 05/07/17 11:47 05/10/17 04:17 05/09/17 05/10/17 05/11/17 05:59 05:59 05:59 Intake Total 1658 850 740 Output Total 6408 3920 1500 Balance -2600 -8190 -228 PT 19.4 SEC (12.0-15.0) H 05/07/17 11:47 INR 1.63 (0.83-1.16) H 05/07/17 11:47 - Time Spent With Patient Time Spent with Patient: greater than 25 minutes Time Spent with Patient: Greater than 25 minutes spent on this patients care, greater than 50% of time spent counseling, educating, and coordinating care regarding the above mentioned plan. - Pending Discharge Pending Discharge Within 24 Hours: Yes Pending Discharge Date: 05/11/17 Pending Discharge Time: 11:00 - Physical Exam Constitutional: no apparent distress, not in pain, obese, No uncomfortable Cardiovascular: edema ( 2+ bilateral lower extremity) Respiratory: no respiratory distress, no rales or rhonchi, clear to auscultation Neurologic: AAOx3 Psychiatric: interacting appropriately, not anxious, not encephalopathic, thought process linear ICD10 Worksheet Patient Problems: Problems Problem Status Onset Anasarca Acute Combined systolic and diastolic heart failure Acute
[2017-05-10] MEDS: ATORVASTATIN CALCIUM 10 MG TAB PO SCH (20:31)
[2017-05-10] MEDS: ASPIRIN 81 MG CHEWABLE TAB PO SCH (20:31)
[2017-05-10] MEDS ORDERED: INSULIN GLARGINE 100 UNITS/ML SYRINGE SC ONE (21:30)
[2017-05-10] MEDS: INSULIN GLARGINE 100 UNITS/ML SYRINGE SC SCH (21:47)
[2017-05-11 05:07] LABS: HEMOGLOBIN 12.3 g/dL (13.7-17.5); MEAN CELL HEMOGLOBIN CONCENTR. 33.2 g/dL (32.4-36.7); MEAN CELL VOLUME 102.2 fL (81.5-99.8); RED BLOOD CELL COUNT 3.62 10^6/uL (4.40-6.38); RED CELL DISTRIBUTION WIDTH 13.2 % (11.5-15.2)
[2017-05-11 05:27] LABS: ALBUMIN 3.9 g/dL (3.5-5.0); ANION GAP 14 mEq/L (8-16); CALCIUM 9.4 mg/dL (8.5-10.4); CARBON DIOXIDE 30 mEq/l (22-31); CHLORIDE 97 mEq/L (97-110); CREATININE 1.3 mg/dL (0.7-1.3); GLOMERULAR FILTRATION RATE 53; GLUCOSE 111 mg/dL (70-100); MAGNESIUM 1.9 mg/dL (1.6-2.3); POTASSIUM 3.6 mEq/L (3.5-5.2); SODIUM 141 mEq/L (134-144)
[2017-05-11 05:45] VITALS: TEMP 98
[2017-05-11 07:18] VITALS: BP 116/67; PULSE 77; RESP 17; O2SAT 96
--- NOTE | 2017-05-11 08:21 | SOAPPROG ---
KRIS Progress Note Assessment/Plan: Assessment: 81 y/o man with acute on chronic diastolic CHF, PAF, HTN , CRI and medical non- compliance. He has diuresed and appears euvolemic and compensated and normal O2 sats on RA. REC: 1)stop Metoprolol tartrate. 2)start on Toprol XL 25mg PO qam. 3)rest of meds without changes. 4)okay to discharge home today. 5)my office will call him tommorrow. Will set up labs in five days (BMP and BNP level) and f/u [facility] in seven days. Thanks. 05/11/17 08:18 Subjective: overall feels back to baseline. Rare wheeze. Denies CP, palpitations, cough or PND. Objective: Vital Signs Temp Pulse Resp BP Pulse Ox 36.7 C 77 17 116/67 96 05/11/17 07:18 05/11/17 07:18 05/11/17 07:18 05/11/17 07:18 05/11/17 07:18 Laboratory Results 05/11/17 04:04 05/11/17 04:04 05/10/17 05/11/17 05/12/17 05:59 05:59 05:59 Intake Total 850 2660 Output Total 3920 1900 Balance -3070 760 PT 19.4 SEC (12.0-15.0) H 05/07/17 11:47 INR 1.63 (0.83-1.16) H 05/07/17 11:47 Physical Exam - Physical Exam General Appearance: alert EENT: normal ENT inspection Neck: non-tender Respiratory: wheezing (rare wheezes at bases.) Cardiac/Chest: regular rate, rhythm, systolic murmur, No gallop, No JVD Peripheral Pulses: 2+: carotid (R), carotid (L), femoral (R), femoral (L), dorsalis-pedis (R), dorsalis-pedis (L) Abdomen: non-tender, No distended, No guarding Skin: warm/dry Extremities: No pedal edema Neuro/Psych: oriented x 3 ICD10 Worksheet Patient Problems: Problems Problem Status Onset Anasarca Acute Combined systolic and diastolic heart failure Acute
[2017-05-11] MEDS ORDERED: METOPROLOL SUCCINATE XR 25 MG TAB PO SCH (09:00)
[2017-05-11] MEDS: FUROSEMIDE 40 MG TAB PO SCH (09:18)
[2017-05-11] MEDS: APIXABAN 5 MG TAB PO SCH (09:18)
[2017-05-11] MEDS: INSULIN LISPRO 100 UNIT/ML SC SCH (09:18)
--- NOTE | 2017-05-11 11:38 | PDDCSUM ---
Discharge Summary Discharge Summary: DISCHARGE SUMMARY FOLLOW-UP ITEMS: Laboratory values this Friday, follow-up appointment scheduled prior to discharge DATE OF ADMISSION: 05/07/17 DATE OF DISCHARGE: 05/11/2017 DISCHARGE DIAGNOSES: 1. Acute diastolic congestive heart failure exacerbation 2. Acute kidney injury on chronic kidney disease stage 3 3. Chronic hypertension 4. Chronic coronary artery disease 5. Paroxysmal atrial fibrillation 6. Diabetes mellitus type 2 CONSULTATIONS: Cardiology PROCEDURES / IMAGING: Echocardiogram demonstrating diastolic dysfunction, normally functioning right ventricle CHIEF COMPLAINT: Acute lower extremity edema and weight gain SUBJECTIVE: Patient is feeling better at time of discharge, his legs are less edematous PHYSICAL EXAM ON DISCHARGE: Systolic blood pressure 110, heart rate 80, afebrile overnight satting well on room air,-12 kg length of stay, lower extremity edema approximately 1+ but significantly improved from presentation, alert awake oriented x3 LABS ON DISCHARGE: Potassium 3.6, BNP 9800, creatinine 1.3, BUN 40 HOSPITAL COURSE BY PROBLEM: 1. Acute diastolic congestive heart failure exacerbation. Combination of diastolic dysfunction on left side as well as right-sided, evidenced by a 30 lb weight gain, hypervolemia on physical exam, responded well to IV Lasix drip and was transitioned to IV Lasix twice daily, then oral Lasix twice daily. As mentioned above, he was net-12 kg during his length of stay. The challenge moving forward will be to determine oral Lasix dose which keeps him at least net even, if not somewhat net negative, without resulting in worsening renal function. He will follow up in [facility] this Friday for laboratory values and has been asked to keep a daily weight log. He is not being discharged on supplemental potassium at this time but if his potassium level because of his chronic kidney disease, but if it declines by this Friday, then oral supplement should be ordered. 2. Acute kidney injury on chronic kidney disease stage 3. Presenting creatinine level greater than 2, down trended to 1.3 at time of discharge with diuresis and improved cardiac output resulting in increased renal perfusion pressure. His renal function will be checked this Friday. For more meticulous chronic management of his renal function, the patient should be referred to his outpatient resource technician. 3. Hypertension. Chronic, patient's beta-lucio dosage was halved and we have discontinued his ARB/hydrochlorothiazide. This has been substituted with scheduled Lasix dosing. His systolic blood pressure is 110 at time of discharge. 4. Chronic coronary artery disease. Patient has elevated troponin level on presentation was most likely secondary to myocardial strain in the setting of CHF. He was continued on his aspirin and statin. 5. Paroxysmal atrial fibrillation. As noted above, patient's metoprolol dosage was slightly reduced secondary to with the patient believe were beta-lucio side effects, and he will be maintained on succinate 25 mg daily. He is also continued on Eliquis for CVA prevention. 6. Diabetes mellitus type 2. In the setting of this patient's widely fluctuating renal function, we were concerned that metformin may result in lactic acidosis and the patient and I believe that it would be advantageous to discontinue and began working on glucose management strictly with the other agents, namely his sulfonylurea, his trulicity, his Lantus. I recommended that he follow up with his primary circuit breaker mechanic in the short term to make any adjustments. DISCHARGE MEDICATIONS: Please see official discharge medication reconciliation sheet in chart , metoprolol succinate 25 mg once daily, Lasix 60 mg twice daily, discontinuation of metformin. DISCHARGE INSTRUCTIONS: Please follow up with [facility] as providing discharge instructions, then follow up with your circuit breaker mechanic thereafter. TIME SPENT: Greater than 30 minutes were spent on direct patient care, as well as discharge planning and preparation.
== END 2017-05-11 13:01 | disposition home or self-care (01) | DRG 291 ==
LOC: F2W 10:41
PROVIDERS: ADMIT Student in an Organized Health Care Education/Training Program; ATTEND Student in an Organized Health Care Education/Training Program
DX: I13.0 Hypertensive heart and chronic kidney disease with heart failure and stage 1 through stage 4 chronic kidney disease, or unspecified chronic kidney disease (principal); I50.31 Acute diastolic (congestive) heart failure; N17.9 Acute kidney failure, unspecified; N18.3 Chronic kidney disease, stage 3 (moderate); I25.10 Atherosclerotic heart disease of native coronary artery without angina pectoris; I48.0 Paroxysmal atrial fibrillation; E11.9 Type 2 diabetes mellitus without complications; E78.5 Hyperlipidemia, unspecified; Z79.4 Long term (current) use of insulin; Z79.01 Long term (current) use of anticoagulants
CPT/HCPCS: J1815; J1940; J3475

== ENCOUNTER → 2017-11-13 | Outpatient (CLI) | payer OTHER, MEDICARE | LOC: BHLMT 14:30 | PROVIDERS: ATTEND Internal Medicine Cardiovascular Disease | DX: I50.33 Acute on chronic diastolic (congestive) heart failure (principal); R06.02 Shortness of breath; I50.9 Heart failure, unspecified; R60.9 Edema, unspecified; I48.0 Paroxysmal atrial fibrillation; N17.9 Acute kidney failure, unspecified | CPT/HCPCS: 93005-PO ==

== ENCOUNTER 2017-11-14 08:14 | Inpatient (IN) | payer OTHER, MEDICARE ==
[2017-11-14] MEDS ORDERED: ONDANSETRON DISINTEGRATING 4 MG TAB PO PRN (11:51)
[2017-11-14] MEDS ORDERED: ONDANSETRON 4 MG/2 ML VIAL IVP PRN (11:51)
[2017-11-14] MEDS ORDERED: ACETAMINOPHEN 325 MG TAB PO PRN (11:51)
[2017-11-14 12:32] LABS: PLATELET COUNT 256 10^3/uL (150-400)
[2017-11-14] MEDS: AMIODARONE HCL 200 MG TAB PO SCH ×2 (13:12→20:24)
--- NOTE | 2017-11-14 14:46 | ECHO ---
[email or web address] [address] [address] Main: [phone] Fax: Transthoracic Echocardiogram Name: JOSUÉ BULLARD MR#: [id number] Study Date: 11/14/2017 Study Time: 01:24 PM Date of : 1935 Age: 82 year(s) Height: 172.7 cm (68 in.) Weight: 92.99 kg (205 lb.) BSA: 2.07 m2 Gender: Male Examination: Echo Indication: Acute/chronic diastolic CHF Image Quality: Contrast: Requested by: Gene Heath BP: 104 mmHg/61 mmHg Heart Rate: Rhythm: Indication: Acute/chronic diastolic CHF Procedure Staff Guest Laundry Attendant: Juliana Foster SUMMER Reading Physician: Gene Heath Requesting Provider: Conclusions: Normal size left ventricle. Moderate concentric LV hypertrophy. The ejection fraction is estimated to be 55-60 %. Diastolic dysfunction is present. . LV base inferior/inferoseptal wall is hypokinetic. All remainin LV segments have normal motion.. Normal RV function. The left atrium is moderately to severely dilated. The right atrium is moderately dilated. The pulmonary artery pressure is normal. Trivial anterior pericardial effusion. Incidental findings - ascites. LV wall suggestive of amyloid. . Measurements: Chambers Valvular Assessment AV/MV Valvular Assessment TV/PV Normal Normal Normal Name Value Range Name Value Range Name Value Range Ao Emeli (MM): 3.9 cm (2.2 cm-3.7 AV meanP mmHg ( - ) TR Vmax: 2.25 mm/s ( - ) cm) AR (PHT): 555 ms ( - ) TR PGmax: 20 mmHg ( - ) IVSd (2D): 1.3 cm (0.6 cm-1.1 MV E Vmax: 1.25 m/s ( - ) syst. PAP: 25 mmHg ( - ) cm) MV A Vmax: 0.58 m/s ( - ) LVDd (2D): 4.8 cm (4.2 cm-5.9 MV E/A: 2.16 ( - ) cm) LVDs (2D): 3.4 cm (2.1 cm-4 cm) LVPWd (2D): 1.4 cm (0.6 cm-1 cm) LVEF (MOD4): 69 % (>=55 %) EF Range: 55-60 % Continued Measurements: Patient: JOSUÉ BULLARD Study Date: 11/14/2017 Page 1 of 2 01:24 PM Chambers Valvular Assessment AV/MV Valvular Assessment TV/PV Name Value Name Value Name Value LADs: 4.7 cm MV E' Septal: 0.05 m/s CVP (est.): 5 mmHg LADs Lon.6 cm MV E/E' Septal: 26.20 LA Area: 28.0 cm2 MV E/E' Lateral: 16.90 AR Vmax: 3.89 cm/s Findings: Left Ventricle: Normal size left ventricle. Moderate concentric LV hypertrophy. The ejection fraction is estimated to be 55-60 %. Diastolic dysfunction is present. . LV base inferior/inferoseptal wall is hypokinetic. All remainin LV segments have normal motion.. Right Ventricle: Normal size right ventricle. Normal RV function. Left Atrium: The left atrium is moderately to severely dilated. Right Atrium: The right atrium is moderately dilated. Mitral Valve: Mild mitral annular calcification. There is mild thickening of the mitral valve leaflets. Mild mitral valve regurgitation is present. Aortic Valve: Mild aortic cusp calcification is noted. Mild aortic valve regurgitation is present. Tricuspid Valve: The tricuspid valve is normal in appearance and function. Moderate tricuspid regurgitation is present. The pulmonary artery pressure is normal. Pulmonic Valve: The pulmonic valve is normal in appearance and function. Trivial pulmonic valve regurgitation. Aorta: The aorta is normal. Pericardium: Trivial anterior pericardial effusion. Exam Comments: Incidental findings - ascites. LV wall suggestive of amyloid. . (No Signature Object) Patient: JOSUÉ BULLARD Study Date: 11/14/2017 Page 2 of 2 01:24 PM [id number]
[2017-11-14] MEDS ORDERED: FUROSEMIDE 40 MG TAB PO SCH (15:00)
--- NOTE | 2017-11-14 15:00 | CPEKG ---
Heart Rate: 70 RR Interval: 857 QRSD Interval: 112 QT Interval: 484 QTC Interval: 523 QRS [place]: -64 T Wave [place]: 123 EKG Severity - ABNORMAL ECG - EKG Impression: ATRIAL FIBRILLATION EKG Impression: LAD, CONSIDER LEFT ANTERIOR FASCICULAR BLOCK EKG Impression: LOW VOLTAGE IN FRONTAL LEADS EKG Impression: CONSIDER ANTEROSEPTAL INFARCT Electronically Signed By: Gage Kelsey 15-Nov-2017 09:02:08
--- NOTE | 2017-11-14 15:16 | GHP ---
[f rep st] HISTORY AND PHYSICAL DATE OF ADMISSION: 11/14/2017 REASON FOR ADMISSION: Acute on chronic diastolic congestive heart failure. HISTORY OF PRESENT ILLNESS: The patient is a pleasant 82-year-old gentleman, who is closely followed at [facility] by Dr. Rod Briones, who was admitted electively today for worsening acute on chronic diastolic congestive heart failure. He has been struggling with increasing lower extremity edema for the last several weeks. He was seen on November 03, 2017, and noted to be moderately volume overloaded. He has continued to develop progressive prerenal azotemia with BUN that had increased from 61 up to 94 yesterday, and creatinine that increased from 1.7 to 2.5, with a potassium of 4.1. In the setting of worsening renal function, with evidence of prerenal azotemia, coupled with a 1.4 kg weight gain, the decision was made for elective admission for further management of acute on chronic diastolic congestive heart failure. The patient denies any changes to his medications. He denies any recent viral illness. He denies complaints of chest pain, chest pressure, shortness of breath or dyspnea. He denies complaints of PND, orthopnea or increasing lower extremity edema. He states he has chronic ankle edema. He denies any complaints of fevers, chills, sweats. He denies any viral illness or flu-like symptoms. PAST MEDICAL HISTORY: Notable for coronary artery disease, carotid disease, diastolic congestive heart failure, ACC/AHA stage C, hyperlipidemia, hypertension. PAST SURGICAL HISTORY: Notable for lumbar spinal surgery, hernia repair, shoulder surgery. MEDICATIONS ON ADMISSION: Aldactone 25 mg half tablet daily, amiodarone 200 mg daily, aspirin 81 mg daily, CoQ10, Eliquis 2.5 mg p.o. b.i.d., glipizide 5 mg 2 times per day before meals, Lantus insulin, Lasix 80 mg tablet half tablet b.i.d., magnesium supplementation, metolazone 2.5 mg Mondays and , metoprolol tartrate 25 mg p.o. b.i.d., simvastatin 20 mg daily 2, Trulicity 0.75 mg/0.5 mL with 0.5 mm injection daily, vitamin C, vitamin E and vitamin D3. ALLERGIES: EVERT inhibitors. FAMILY HISTORY: Coronary artery disease, hypertension, hypertriglyceridemia. SOCIAL HISTORY: He is a former smoker, quit in 1959. He does not drink alcohol. He is . He lives with his . He has 2 children. EXAM: VITAL SIGNS: Weight is 93 kg, blood pressure 104/61, heart rate of 69 in atrial fibrillation, respiratory rate of 15, oxygen saturation 94% on room air, temperature 36.5 degrees. He is awake, alert, oriented, appropriate, in no apparent distress. He does have evidence of JVP to the angle of the jaw. This is notable while lying at 30 degrees, as well as sitting perfectly upright. CARDIAC: Irregularly irregular with no murmurs, rubs, or gallops. LUNGS: Clear to auscultation bilaterally. He does have sacral pitting edema. He does have pitting edema in the thighs bilaterally, and 2+ pitting edema to the knee bilaterally. ABDOMEN: Soft, nontender. There is evidence of shifting dullness and fluid wave, suggestive of ascites. LABORATORY DATA: Pending. IMPRESSION: 1. Acute on chronic diastolic congestive heart failure. 2. Increasing lower extremity edema. 3. Acute renal failure. PLAN: 1. Lab work including CBC, comprehensive metabolic panel, BNP, magnesium. 2. Complete 2D echocardiogram. 3. Right upper quadrant and abdominal ultrasound to evaluate for possible cirrhosis and evidence of ascites. 4. Nephrology consultations in the setting of acute renal failure. 5. Hospitalist consult for management with diabetes. 6. Further workup pending the results of the above tests. 7. We will hold metolazone for the time being until lab work and consultations have been obtained. 45 min spent coordinating care. /[id number]/MODL MTDD
[2017-11-14] MEDS: FUROSEMIDE 40 MG/4 ML VIAL IVP SCH (15:20)
[2017-11-14] MEDS: glipiZIDE 5 MG TAB PO SCH (18:21)
--- NOTE | 2017-11-14 18:40 | PDHOSCONS ---
Hospitalist Consult Hospitalist Consult: CC: Assessed by Dr. Xei of Cardiology to assess and assist in the care of this patient who has diabetes and is coming to the hospital with uncontrolled heart failure HISTORY: This patient has chronic diastolic congestive heart failure and chronic kidney disease, probably renal in origin. He has been seen in the Cardiology clinics and is being sent in for admission at this time because of markedly worsening edema with some anasarca and ascitic fluid. The patient is on diuretic medications at home. There is no symptoms at this time to suggest ischemia or arrhythmia. He denies any kind of fevers. Cardiology team will be a assessing and managing his cardiac issues. In addition his creatinine is up from his baseline and a nephrology consultation has been requested. In terms of his diabetes the patient has group home did type 2 diabetes. His medications at home include Trulicity every Friday, glipizide orally, and Lantus insulin twice daily. He checks a.m. fingersticks and has intermittent hemoglobin A1cs. He says that his sugars mostly are good and often 115 in the morning. Sometimes they will get higher up to around 140 or 150. He has very infrequent low sugars and says he gets symptoms at this point with sugars as low as 60-70. Notably however he did altered his dose of Lantus daily based on his morning fingerstick. He says he will typically use around 4-5 U but if his sugar gets up around 140 or 150 he will use more in the 12-[address] Hernandez is his plating stripper. He has not had any significant diabetic foot infections, is not blind, but does have numbness in his feet ROS: A comprehensive 10 system review revealed no other significant findings PAST MEDICAL HISTORY: Chronic diastolic heart disease with heart failure Atrial fibrillation, chronic Chronic coronary disease Chronic kidney disease probably diabetic Type 2 diabetes mellitus Hyperlipidemia Hypertension Shoulder surgery, spine surgery, hernia repair FAMILY MEDICAL HISTORY: Diabetes and heart disease SOCIAL HISTORY: lives with his ,, no tobacco no significant alcohol Walks about 0.5 mi daily MEDICATIONS: I reviewed his medicine list is reconciled by our pharmacist. I have discussed his diabetes medicines above PHYSICAL EXAMINATION: Vital Signs: Normal vital signs without fever [place]: AFib rate controlled Examination: General: alert, oriented, good mentation, relaxed Skin: warm, dry, good color, no rash HEENT: normal Neck: no mass or jvd Resps: relaxed Lungs: Some bilateral rales Heart: irregular, no murmur Abdomen: soft, nondistended, nontender, +BS, no mass Upper Extremities: normal Lower Extremities: Pitting edema of both legs from above the knees down to the distal feet; on the right foot there is cellulitis of the 2nd toe and there is a small noninfected appearing do dry scab on the dorsum of the 3rd toe. The 2nd toe does not have any open sores but there is a subungual hematoma. There are no concerning lesions on the left foot at this time though a significant callus needs to be watched over time No Bleeding or bruising Neurologic: normal speech/language, normal lead cook, no focal weakness IV site: looks normal LABORATORY DATA: Glucose is 177 BNP 7500 Creatinine 2.6 is notably above his baseline RADIOLOGY STUDIES: Chest x-ray with large heart, no pulmonary edema or effusions 12 LEAD EKG: AFib, rate controlled with nonspecific conduction delay in the QRS ASSESSMENT: -acute congestive heart failure largely right-sided in terms of his volume location, with chronic diastolic heart disease and rate controlled AFib -acute renal failure on chronic; question if he is not perfusing his kidneys due to his worsened heart failure with decreased output versus other acute mechanism, likely diabetic mechanism of the chronic disease -electrolytes in good shape -initial blood glucose in good range for hospital visit -goal glucose here would be 140-180 to try and avoid any low sugars -will start off with a low-dose of his twice daily Lantus and continue his usual doses of glipizide andtrulicity -I did have a long discussion with him about the inappropriateness of making daily adjustments on Lantus dose based on his morning fingersticks and the potential for hypoglycemia and recommended that he follow up with Dr. Hernandez with after his admission to review this -diabetic toe infection 2nd toe right foot with cellulitis and a subungual hematoma, exam does not show significant evidence of a deeper infection -will start with some x-rays to rule out osteomyelitis -will treat with antibiotics empirically to begin managing the cellulitis I have reviewed the patient's case in detail with Dr. Rojas Heath I have reviewed the patient's past medical records as part of this assessment, including past laboratory data and admission records
[2017-11-14] MEDS: ASPIRIN 81 MG CHEWABLE TAB PO SCH (20:24)
[2017-11-14] MEDS: METOPROLOL TARTRATE 25 MG TAB PO SCH (20:24)
[2017-11-14] MEDS: AMOXICILLIN/CLAVULANATE POT 875/125 MG TAB PO SCH (20:24)
[2017-11-14] MEDS: APIXABAN 2.5 MG TAB PO SCH (20:24)
[2017-11-14] MEDS: ATORVASTATIN CALCIUM 10 MG TAB PO SCH (20:24)
[2017-11-14] MEDS ORDERED: INSULIN GLARGINE 100 UNITS/ML SYRINGE SC SCH (21:00)
[2017-11-14] MEDS ORDERED: INSULIN GLARGINE 12 UNIT SC SCH (21:00)
[2017-11-14] MEDS: INSULIN GLARGINE 100 UNITS/ML SYRINGE SC SCH (21:54)
[2017-11-15] MEDS: METOPROLOL TARTRATE 25 MG TAB PO SCH ×2 (08:06→21:02)
[2017-11-15] MEDS: glipiZIDE 5 MG TAB PO SCH ×2 (08:06→18:16)
[2017-11-15] MEDS: INSULIN GLARGINE 100 UNITS/ML SYRINGE SC SCH ×2 (08:06→21:10)
[2017-11-15] MEDS: FUROSEMIDE 40 MG/4 ML VIAL IVP SCH (08:06)
[2017-11-15] MEDS: SPIRONOLACTONE 25 MG TAB PO SCH (08:07)
[2017-11-15] MEDS: APIXABAN 2.5 MG TAB PO SCH ×2 (08:07→21:02)
[2017-11-15] MEDS: AMIODARONE HCL 200 MG TAB PO SCH ×2 (08:07→21:01)
[2017-11-15] MEDS: AMOXICILLIN/CLAVULANATE POT 875/125 MG TAB PO SCH (08:07)
--- NOTE | 2017-11-15 12:42 | SOAPPROG ---
SOAP Progress Note Assessment/Plan: Assessment: 1. chronic diastolic heart failure 2. Acute diastolic heart failure 3. Right-sided congestive heart failure 4. Diabetes mellitus 5. Chronic atrial fibrillation 6. hypertension 7. Dyslipidemia 8. acute renal failure 9. Chronic kidney disease 10. swelling with infection 1st is other etiologies for pathology seen on foot x-ray He has longstanding chronic diastolic heart failure with right heart failure as soccer and edema. With diuresis he has gone into acute on top of chronic kidney failure. He still is significantly fluid overloaded. the renal service is going to see him and I have spoken to Dr. Robertson. We need to be gentle with his diuresis the patient may not be able to tolerate much more diuresis. His renal function is significantly worse following the diuresis that is happen so far. He has swelling in his foot and there is a question on the x-ray of whether it might be a lytic lesion and tissue swelling of unknown etiology. They suggested an MRI in the hospitalist can consider this in the further evaluation of his problems with his foot. He is on antibiotics for possible infection. His diabetes is poorly controlled him being managed well by our service and will get better. He has chronic atrial fibrillation chronic hypertension these problems need to be followed. He is on his amiodarone and full anticoagulation which he needs because of his high chads Vasc score. When I saw him He had a irregularly irregular heartbeat when I was examining him. He is not suffering at this point. He is going to remain in the hospital for for the further therapy. Plan: 11/15/17 12:59 11/15/17 13:03 Subjective: He is feeling well today. He is not having any chest pain or chest tightness. He has no shortness of breath He really wants to go home. he does have peripheral edema. His is very concerned about him. does not have nausea or vomiting. He has no jaw pain arm pain when I ask him why he came into the hospital he cannot tell me why. He has no new complaints today is taking his medications. he is notghtheaded or dizziness. Objective: Vital Signs Temp Pulse Resp BP Pulse Ox 36.3 C 65 16 107/70 90 L 11/15/17 11:20 11/15/17 11:20 11/15/17 11:20 11/15/17 11:20 11/15/17 11:20 Laboratory Results 11/14/17 09:40 11/15/17 03:22 11/14/17 11/15/17 11/16/17 05:59 05:59 05:59 Intake Total 1000 Output Total 1300 700 Balance -300 -700 Selected Entries 11/14/17 11/15/17 11/15/17 23:07 04:01 07:27 Heart Rate 65 Temperature (C) 36.5 C Blood Pressure 96/53 L 93/60 L 118/65 Cardiac Rhythm 11/15/17 11/15/17 07:43 11:20 Heart Rate 65 Temperature (C) 36.3 C Blood Pressure 107/70 Cardiac Rhythm Atrial Fibrillation Laboratory Tests 11/14/17 11/14/17 11/14/17 09:40 09:40 20:46 WBC 7.86 Hct 34.5 L Plt Count 256 POC Glucose 167 H NT-Pro-B Natriuret Pep 7500 H 11/15/17 11/15/17 11/15/17 03:22 07:53 11:34 WBC Hct Plt Count POC Glucose 99 130 H NT-Pro-B Natriuret Pep 7240 H Laboratory Tests 11/14/17 11/14/17 11/15/17 09:40 20:46 03:22 BUN 90 H 91 H Creatinine 2.6 H 2.4 H POC Glucose 167 H 11/15/17 11/15/17 07:53 11:34 BUN Creatinine POC Glucose 99 130 H Physical Exam - Physical Exam General Appearance: alert, no apparent distress, No mild distress Neck: supple Respiratory: rhonchi, prolonged expiration Cardiac/Chest: systolic murmur, irregularly irregular Abdomen: non-tender, soft, No organomegaly Skin: warm/dry, mottled Extremities: non-tender, pedal edema Neuro/Psych: alert, normal mood/affect, oriented x 3 ICD10 Worksheet Patient Problems: Problems Problem Status Onset Anasarca Acute Chronic Disease Mgmt/Transitional Care Acute Combined systolic and diastolic heart failure Acute
--- NOTE | 2017-11-15 13:28 | GCON ---
[f rep st] CONSULTATION NEPHROLOGY CONSULTATION DATE OF CONSULTATION: 11/15/2017 REASON FOR CONSULTATION: Elevated creatinine. HISTORY OF PRESENT ILLNESS: This is a very pleasant, 82-year-old male with a past medical history si gnificant for several issues, including biventricular diastolic heart failure and diabetes, who now p resents with an elevated creatinine and increased lower extremity edema. History is obtained from e patient, who is a fair historian. Additional history is obtained from the chart. The patient follows regularly with Cardiology. Over the past 2-3 months, he has noted an increase in his abdominal girth as well as his lower extremity edema. Relating to this, he has had increasing d iuretic dosing. The patient has a longstanding history of chronic kidney disease. In reviewing his creatinine levels , it appears that his baseline creatinine is likely near 1.5 to 1.7. He has had multiple excursions over the past 2 years. Most recently, it has jumped from 1.7 on October 31, up to 2.5 on November 12. Currently, the patient's creatinine level is 2.4. His blood pressure has been running between 93 and 107. He is currently saturating 90% to 92% on room air and is subjectively not having any shortness of breath. The patient does have a longstanding history of diabetes. He is treated by Dr. Hernandez. Micro albumi kalyan studies in the past have been negative. He has had an abdominal ultrasound which showed some e vidence of cirrhosis, some ascites, and no major abnormalities with his kidneys or urinary tract. e patient does not have a history of nonsteroidal intake. As related to the above findings, we are asked by Dr. Heath to assist the patient's renal diagnosis an d management. PAST MEDICAL HISTORY: 1. Coronary artery disease. 2. Diastolic heart failure. ACC/AHA stage III. 3. Hyperlipidemia. 4. Hypertension. SURGICAL HISTORY: 1. Lumbar spine surgery. 2. Hernia surgery. 3. Shoulder surgery. HOME MEDICATIONS: Aldactone 12.5 mg daily, amiodarone 2 mg daily, aspirin 81 mg daily, Eliquis 2.5 m g b.i.d., glipizide 5 mg b.i.d., Lantus insulin, Lasix 40 mg b.i.d., magnesium supplementation metola zone 2.5 mg twice a week, Metoprolol 25 mg b.i.d., simvastatin 20 mg daily, Trulicity daily, vitamin C daily, vitamin E and vitamin D3 daily. ALLERGIES: EVERT inhibitors. FAMILY HISTORY: Positive for coronary artery disease and hypertension. SOCIAL HISTORY: The patient was originally from [place]. 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 He is and has 2 children. They are in good health. He has a remote smoking hist ory. He does not drink alcohol. REVIEW OF SYSTEMS: A 12 systems review was obtained. It is notable for having nearsightedness, some chronic cough, his abdominal distention, his lower extremity edema, and symptoms of neuropathy. His hemoglobin A1cs typically run around 7-7.2. PHYSICAL EXAM: GENERAL: At the time of exam, the patient is pleasant, appropriate and alert. VITAL SIGNS: Temperature 36.3, pulse 65, blood pressure 107/72. HEENT: Eyes: Sclerae clear. Oropharyn x clear. With dentition in fair repair. NECK: The patient has marked jugular venous distention to the angle of the mandible while sitting upright. No lymphadenopathy was noted. LUNGS: Clear to aus cultation bilaterally. CARDIOVASCULAR: Regular rate and rhythm without gallops or rubs. ABDOMEN: Distended, nontender. AND RECTAL: deferred. EXTREMITIES: 1+ to 2+ bilateral lower extremity ed maggy. NEURO: Notable for his peripheral neuropathy. INTEGUMENT: Clear except for some bruising. LABORATORY STUDIES: White count 7.86, hematocrit 34.5, platelets 256. Sodium 133, potassium 4.1, bi carb 29, creatinine 2.4. IMPRESSION AND PLAN: 1. Acute kidney injury on chronic kidney disease. The patient appears to have baseline nonproteinur ic chronic kidney disease with a creatinine around 1.5-1.7. He now has acute kidney injury with a cr eatinine acutely rising into the upper 2s. There are several findings associated with this. First, he does appear to have some element of right-sided heart failure. He also has fairly low systolic dr iving pressures. He also has been placed on diuretics for his regional volume disturbance of lower e xtremity edema and ascites. I do suspect his acute kidney injury is hemodynamic, superimposed on his chronic kidney disease. We did review these findings together. Ideally, for his kidneys, the optim al therapy would be to improve cardiac output. We will review these issues with Cardiology. 2. Diabetes mellitus. This has been under reasonable control. I have reviewed Trulicity. I do not believe this is responsible for his current findings, and it appears to be dosed okay. 3. Anemia. The patient is anemic. This appears appropriate for his level of kidney function. We w ill follow. 4. Antibiotics. The patient is on Augmentin. Presently I cannot find the indication for this. I w ill discontinue this. 5. Right heart failure. Based on the patient's exam, he clearly has markedly remarkably elevated ri ght-sided pressures. This is likely responsible for his ascites and lower extremity edema, in spite of some evidence of cirrhosis on his CT scan. His serum albumin is okay. He does not have a particu larly high sodium diet. He is on diuretics. We will leave him on his current doses. The cause of h is right heart failure is unclear. His echocardiogram really does not show pulmonary hypertension. He has had a negative sleep study for sleep apnea. He did not appear to have chronic pulmonary disea se. There is a question of the appearance of amyloidosis on his echocardiogram. We will rule out a paraprotein. 6. Cirrhosis. The patient has evidence of mild cirrhosis. Except for passive congestion, there is not a clear etiology for this. Thank for allowing us participate in this gentleman's care. We will continue to follow along closely with you. /[id number]/MODL
--- NOTE | 2017-11-15 15:47 | HOSPPROG ---
Hospitalist Progress Note Assessment/Plan: -acute congestive heart failure largely right-sided in terms of his volume location, with chronic diastolic heart disease and rate controlled AFib * Diuresis per renal and Cardiology -acute renal failure on chronic; question if he is not perfusing his kidneys due to his worsened heart failure with decreased output versus other acute mechanism, likely diabetic mechanism of the chronic disease * Nephrology input appreciated * type 2 diabetes * [facility]? Diabetic toe infection of 2nd toe right foot * X-ray is showing possible lytic lesion verses infection * Will get MRI but cannot get contrast * Continue Augmentin for now Subjective: Feels fairly well. No new complaints Objective: Vital Signs Temp Pulse Resp BP Pulse Ox 36.3 C 65 16 107/70 90 L 11/15/17 11:20 11/15/17 11:20 11/15/17 11:20 11/15/17 11:20 11/15/17 11:20 Laboratory Results 11/14/17 09:40 11/15/17 03:22 11/14/17 11/15/17 11/16/17 05:59 05:59 05:59 Intake Total 1000 Output Total 1300 700 Balance -300 -700 - Physical Exam Constitutional: no apparent distress, appears nourished, not in pain Eyes: anicteric sclera, EOMI Ears, Nose, Mouth, Throat: moist mucous membranes, hearing normal Cardiovascular: irregularly irregular Respiratory: no respiratory distress, no rales or rhonchi Gastrointestinal: normoactive bowel sounds, soft, non-tender abdomen, no palpable masses Skin: warm Musculoskeletal: other (Right 4th toe with eschar no significant erythema or warmth) Neurologic: AAOx3 Psychiatric: interacting appropriately, not anxious, not encephalopathic, thought process linear ICD10 Worksheet Patient Problems: Problems Problem Status Onset Anasarca Acute Chronic Disease Mgmt/Transitional Care Acute Combined systolic and diastolic heart failure Acute
--- NOTE | 2017-11-15 15:51 | ASMTCMCOM ---
CM Note CM Note Notes: Spoke with RN & MD; anticipate dc home with support of spouse when medically stable. CM available if needs/changes. Date Signed: 11/15/2017 03:50 PM Electronically Signed By:Helen Gaffney RN
[2017-11-15] MEDS ORDERED: (Dulaglutide [Trulicity] 0.75 MG) SQ SCH (17:51)
[2017-11-15] MEDS: ATORVASTATIN CALCIUM 10 MG TAB PO SCH (21:00)
[2017-11-15] MEDS: ASPIRIN 81 MG CHEWABLE TAB PO SCH (21:01)
[2017-11-15] MEDS: AMOX/CLAVULANATE 500/125 MG TAB PO SCH (21:02)
[2017-11-16 04:14] LABS: PLATELET COUNT 256 10^3/uL (150-400)
[2017-11-16 04:40] VITALS: TEMP 98; O2SAT 98
[2017-11-16 07:25] VITALS: BP 103/69; PULSE 85; RESP 16
[2017-11-16] MEDS: AMIODARONE HCL 200 MG TAB PO SCH (08:39)
[2017-11-16] MEDS: APIXABAN 2.5 MG TAB PO SCH (08:39)
[2017-11-16] MEDS: METOPROLOL TARTRATE 25 MG TAB PO SCH (08:39)
[2017-11-16] MEDS: SPIRONOLACTONE 25 MG TAB PO SCH (08:39)
[2017-11-16] MEDS: AMOX/CLAVULANATE 500/125 MG TAB PO SCH (08:39)
[2017-11-16] MEDS: FUROSEMIDE 40 MG/4 ML VIAL IVP SCH (08:39)
[2017-11-16] MEDS: glipiZIDE 5 MG TAB PO SCH (08:39)
[2017-11-16] MEDS: INSULIN GLARGINE 100 UNITS/ML SYRINGE SC SCH (08:40)
--- NOTE | 2017-11-16 10:15 | SOAPPROG ---
SOAP Progress Note Assessment/Plan: Assessment: 1. chronic diastolic heart failure 2. Acute diastolic heart failure 3. Right-sided congestive heart failure 4. Diabetes mellitus 5. Chronic atrial fibrillation 6. hypertension 7. Dyslipidemia 8. acute renal failure 9. Chronic kidney disease 10. swelling with infection 1st is other etiologies for pathology seen on foot x-ray Plan: 11/15/17 12:59 11/15/17 13:03 11/16/17 10:17 1. Chronic diastolic heart failure 2. Acute diastolic heart failure 3. Right-sided congestive failure 4. Diabetes mellitus 5. Chronic atrial fibrillation 6. Hypertension 7. Dyslipidemia 8. Acute renal failure 9. Chronic kidney disease 10. Ft swelling. He is in atrial fibrillation with a controlled ventricular response. He has not significantly lost weight and his I and O is close to equal. His creatinine is still pretty much where it has been since he came in. I was hoping it would go down and I think we should consider holding some of his diuretics but we have the expertise of renal coming to see him so we will see what they recommend. The patient is worried about his kidneys and obviously we do not want to create more renal pathology with our therapeutics. He is having this swollen foot MRI does make it clear what is the problem. He is on antibiotics and this is being evaluated by the Service. He is clinically stable at this point time. He is ambulating. He is concerned about his health and we talked about this carefully. I I want to be supportive of him and try to encourage him that he can improve and feel better. I think it would be a very negative thing if he gets too discouraged about his health status. I did have an up to talk to his yesterday and if I see her today I will talk to her some more because she is worried about him as well. I have answered all his questions at this point time. He is on full anticoagulation for his atrial fibrillation. His blood sugars are improving. All Subjective: All he has no chest pain at this time He is not complaining of shortness of breath He is not having fevers or chills His peripheral edema is improved. He has no new neurologic complaints. He is taking his medications. Objective: Vital Signs Temp Pulse Resp BP Pulse Ox 36.7 C 85 16 103/69 98 11/16/17 07:24 11/16/17 07:24 11/16/17 07:24 11/16/17 07:24 11/16/17 07:24 Laboratory Results 11/16/17 03:35 11/16/17 03:35 11/15/17 11/16/17 11/17/17 05:59 05:59 05:59 Intake Total 1000 1530 Output Total 1300 1500 Balance -300 30 Laboratory Tests 11/14/17 11/15/17 11/15/17 09:40 03:22 17:09 WBC Hct Plt Count Neut % (Auto) Lymph % (Auto) Coles % (Auto) Eos % (Auto) Baso % (Auto) BUN Creatinine 2.6 H 2.4 H POC Glucose 102 H Cholesterol LDL Cholesterol, Calc HDL Cholesterol TSH 11/15/17 11/16/17 11/16/17 20:58 03:35 03:35 WBC 7.43 Hct 38.1 L Plt Count 256 Neut % (Auto) 71.7 Lymph % (Auto) 10.9 L Coles % (Auto) 11.2 Eos % (Auto) 4.8 Baso % (Auto) 0.9 BUN 87 H Creatinine 2.5 H POC Glucose 104 H Cholesterol 95 L LDL Cholesterol, Calc 52 L HDL Cholesterol 31 L TSH 8.680 H Physical Exam - Physical Exam General Appearance: alert, no apparent distress Neck: non-tender, No carotid bruit Respiratory: rhonchi, prolonged expiration Cardiac/Chest: JVD, irregularly irregular Abdomen: non-tender, soft Skin: mottled Extremities: non-tender, pedal edema Neuro/Psych: alert, normal mood/affect ICD10 Worksheet Patient Problems: Problems Problem Status Onset Anasarca Acute Chronic Disease Mgmt/Transitional Care Acute Combined systolic and diastolic heart failure Acute
--- NOTE | 2017-11-16 11:20 | SOAPPROG ---
SOISREAL Progress Note Assessment/Plan: Assessment: 1. SAUMYA on CKD I believe the patient has underlying CKD, and his SAUMYA is hemodynamic relating to R heart issues. He already has been seen in our office. He also is seeing Dr. Briones For now, I would back off on his diuresis, and evaluate for causes of potential restrictive disease. Agree with DC. He needs follow up on his electropheresis studies. 2. Toe Infection He will be DC'd on antibx and follow up with podiatry. 3. Cirrhosis This will need further eval. Plan: 11/16/17 11:16 Subjective: Doing pretty well Objective: Vital Signs Temp Pulse Resp BP Pulse Ox 36.7 C 85 16 103/69 98 11/16/17 07:24 11/16/17 07:24 11/16/17 07:24 11/16/17 07:24 11/16/17 07:24 Laboratory Results 11/16/17 03:35 11/16/17 03:35 11/15/17 11/16/17 11/17/17 05:59 05:59 05:59 Intake Total 1000 1530 Output Total 1300 1500 Balance -300 30 Physical Exam - Physical Exam General Appearance: no apparent distress Neck: other (jvd present) Respiratory: lungs clear Cardiac/Chest: regular rate, rhythm Extremities: pedal edema Neuro/Psych: oriented x 3 ICD10 Worksheet Patient Problems: Problems Problem Status Onset Anasarca Acute Chronic Disease Mgmt/Transitional Care Acute Combined systolic and diastolic heart failure Acute
--- NOTE | 2017-11-16 14:18 | GDS ---
[f rep st] DISCHARGE SUMMARY DISCHARGE DIAGNOSES: 1. Xhfaj-yu-eiyrhue diastolic congestive heart failure exacerbation. 2. Yctzu-ir-qggxdwe kidney disease. 3. Right-sided heart failure of uncertain etiology. 4. Cirrhosis of unclear etiology. 5. Right 4th toe mild cellulitis and joint fluid collection of uncertain significance. 6. Type 2 diabetes. 7. History of coronary artery disease. HISTORY: This is an 82-year-old male who presented with increasing lower extremity edema and elevate d creatinine. HOSPITAL COURSE: 1. Diastolic CHF exacerbation/right-sided heart failure. Echocardiogram actually did not show any p ulmonary hypertension, but he does have JVD and a significant amount of lower extremity edema and pro bably passive congestion in the liver. This points to possibly more restrictive heart disease. He w as diuresed some and did have some improving edema it does appear, because compression stockings are also helping his edema. Currently, he is very much wanting to go home which I think is reasonable. He will follow up closely with Dr. Briones to see if there is any further workup for possible restricti ve heart disease. 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 2. Vamnp-rm-mxkoclr renal failure. Nephrology thinks this hemodynamically mediated. His blood pres sure is on the low side, in spite of significant JVD and lower extremity edema. He would like to con tinue his diuresis, although discontinue his metolazone. He will follow up with Nephrology as well. 3. Possible, but unlikely, 4th toe osteomyelitis/diabetic foot infection. Patient did have a little bit of swollen toe on the 4th toe and an eschar from a previous injury. Plain films showed a possib le lytic lesion which was confirmed by MRI. There is a pathological fracture and a little bit of flu id. On exam, though, his toe has some slight erythema, but is nowhere near overtly infected. He has been started on antibiotics which he will continue for at least 7 days. I have instructed him to se e a plug drill operator in the next 1-2 weeks and tell them to review the MRI that was done here. FOLLOWUP INSTRUCTIONS: He is instructed to follow up with Cardiology this week. He is also instruct ed to follow up with Nephrology in a couple weeks, as well as Podiatry within a couple weeks. We dis continued his metolazone and added Augmentin. Other medications will remain the same. TIME SPENT: Greater than 30 minute spent on discharge. /[id number]/MODL
--- NOTE | 2017-11-16 14:46 | ASDISCHSUM ---
Discharge Information Plan Status:Home with No Needs Medically Cleared to Leave:11/15/2017 Discharge Date:11/16/2017 12:37 PM CM D/C Disposition:Home, Routine, Self-Care ADT D/C Disposition:Home, Routine, Self-Care Projected Discharge Date:11/16/2017 12:00 AM Transportation at D/C:Family Discharge Delay Reason: Follow-Up Date:11/16/2017 12:00 AM Discharge Slot: Final Diagnosis:CHF, SAUMYA, Toe infection, Cirrhosis Placement Information Patient Contact Information Contact Name:CHANO Relationship: Address:[address] Work Phone: [facility]:[employer] Alternate Phone: [facility]/Zip Code:[place] [address] Email: Financial Information Financial Class: Primary Plan Desc:MEDICARE OUTPATIENT Primary Plan Number:[id number] Secondary Plan Desc:[employer]/M[employer] SUPPLEMENT Secondary Plan Number:[id number] Assessment Information [facility] CM Progress Note CM Note CM Note Notes: Spoke with RN & MD; anticipate dc home with support of spouse when medically stable. CM available if needs/changes. Date Signed: 11/15/2017 03:50 PM Electronically Signed By:Helen Gaffney RN Case Management Discharge Plan Note Case Management Discharge Discharge Order Complete? Answers: Yes Patient to Obtain Answers: via Family Medications Transportation Arranged Answers: Family/Friends Transport will Pick (Date 11/16/2017 12:00 AM & Time) Family Notified Answers: Yes Notes: Family to transport Discharge Comments Notes: Patient has been discharged home with . No other needs at this time. Date Signed: 11/16/2017 12:24 PM Electronically Signed By:Jelly Sears LCSW Intervention Information
[2017-11-17 04:00] LABS: HEPATITIS B SURFACE ANTIGEN NEGATIVE (NEGATIVE)
[2017-11-17 04:06] LABS: HEPATITIS A ANTIBODY IGM (BCH) NEGATIVE (NEGATIVE); HEPATITIS B CORE AB IGM NEGATIVE (NEGATIVE)
[2017-11-17 04:17] LABS: HEPATITIS C ANTIBODY TOTAL NEGATIVE (NEGATIVE)
[2017-11-17] MEDS ORDERED: VITAMIN B COMPLEX 1 EA CAP/TAB PO SCH (08:00)
[2017-11-17] MEDS ORDERED: CHOLECALCIFEROL VIT D3 1,000 UNITS TAB PO SCH (08:00)
[2017-11-17] MEDS ORDERED: FUROSEMIDE 40 MG TAB PO SCH (09:00)
== END 2017-11-16 12:37 | disposition home or self-care (01) | DRG 291 ==
LOC: F2W 08:14 → OBSVTOIN 11:51
PROVIDERS: ADMIT Internal Medicine Cardiovascular Disease; ATTEND Internal Medicine Cardiovascular Disease
DX: I13.0 Hypertensive heart and chronic kidney disease with heart failure and stage 1 through stage 4 chronic kidney disease, or unspecified chronic kidney disease (principal); I50.33 Acute on chronic diastolic (congestive) heart failure; N17.9 Acute kidney failure, unspecified; E11.69 Type 2 diabetes mellitus with other specified complication; M86.8X7 Other osteomyelitis, ankle and foot; N18.9 Chronic kidney disease, unspecified; I50.810 Right heart failure, unspecified; K74.60 Unspecified cirrhosis of liver; L03.031 Cellulitis of right toe; I25.10 Atherosclerotic heart disease of native coronary artery without angina pectoris; I48.0 Paroxysmal atrial fibrillation; D64.9 Anemia, unspecified; E78.5 Hyperlipidemia, unspecified; Z79.4 Long term (current) use of insulin
CPT/HCPCS: 84166-90; 93005-PO; G0472; J1815; J1940

== ENCOUNTER 2017-11-25 09:29 | Inpatient (IN) | payer OTHER, MEDICARE ==
[2017-11-25] MEDS ORDERED: ONDANSETRON 4 MG/2 ML VIAL IVP PRN (10:31)
[2017-11-25] MEDS ORDERED: ONDANSETRON DISINTEGRATING 4 MG TAB PO PRN (10:31)
[2017-11-25] MEDS ORDERED: ACETAMINOPHEN 325 MG TAB PO PRN (10:31)
[2017-11-25 14:50] LABS: PLATELET COUNT 249 10^3/uL (150-400)
--- NOTE | 2017-11-25 15:56 | PDCARPN ---
Cardiology Progress Note Assessment/Plan: Patient seen briefly this afternoon. I had a phone conversation this morning with his usual stitcher special machine, Dr. Briones. Mr Andre 11/25/17 15:54 Objective: Vital Signs (8 Hrs) Temp Pulse Resp BP Pulse Ox 11/25/17 14:19 36.3 C 76 16 103/75 97 Intake/Output (24 Hrs) 11/24/17 11/25/17 11/26/17 05:59 05:59 05:59 Other: Weight 95.1 kg Result Diagrams: 11/25/17 14:35 11/25/17 14:35 ICD10 Worksheet Patient Problems: Problems Problem Status Onset Anasarca Acute Chronic Disease Mgmt/Transitional Care Acute Combined systolic and diastolic heart failure Acute
[2017-11-25] MEDS ORDERED: FUROSEMIDE 100 MG/10 ML VIAL IVP ONE (16:35)
--- NOTE | 2017-11-25 16:42 | PDGENHP ---
History and Physical - Chief Complaint Acute abdominal swelling - History of Present Illness Primary care provider: Karel Primary setter juice packaging machines: Dr. Juan Francisco Briones Primary eyedotter: Jody Nephrology HPI: 82-year-old male presenting with acute worsening of chronic abdominal swelling characterized as bloating, abdominal distension, with associated bilateral lower extremity edema and exertional shortness of breath. The patient reports that used to be able to walk 1 mi on flat surface now he can only walk 1/4 of a mi before he gets short of breath. His shortness of breath is alleviated by rest and he otherwise denies any fevers chills cough chest pain or change in urine output. The patient reports that the onset of the abdominal swelling, lower extremity edema is as long as he can remember, but it does appear that it has become worse recently. He reports that he has taking all of his home medications as prescribed and after recent hospitalization he was instructed to stop metolazone, notably on 11/16/2017. He follows with Dr. Juan Francisco Briones on 11/24, and Dr. Briones impression was that the patient was hypovolemic, requiring IV diuretics, as well as further workup for the etiology. History Information - Allergies/Home Medication List Allergies/Adverse Reactions: EVERT Inhibitors Allergy (Verified 05/07/17 12:20) SWOLLEN TESTICLE Home Medications: Cholecalciferol Vit D3 [Vitamin D3 (*)] 1,000 units PO Q3D 09/06/13 [Last Taken 03/12/16] Glipizide [Glipizide 5 mg (RX)] 5 mg PO BIDMEAL 09/06/13 [Last Taken 11/25/17] Herbals/Supplements -Info Only 1 each PO DAILY 09/06/13 [Last Taken 03/12/16] Simvastatin [Zocor 20 mg] 20 mg PO HS 09/06/13 [Last Taken 11/24/17] Vitamin B Complex [Vitamin B Complex (OTC)] 1 each PO Q3D 09/06/13 [Last Taken 03/11/16] Aspirin [Aspirin 81mg (*)] 81 mg PO HS 03/13/16 [Last Taken 11/24/17] Dulaglutide [Trulicity] 0.75 mg SQ SA 05/07/17 [Last Taken 11/22/17] Amiodarone HCl [Pacerone (*)] 200 mg PO BID 11/14/17 [Last Taken 11/25/17] Apixaban [Eliquis] 2.5 mg PO BID 11/14/17 [Last Taken 11/25/17] Furosemide [Lasix 40 MG (*)] 40 mg PO BID@09,15 11/14/17 [Last Taken 11/25/17] Insulin Glargine [Lantus 100 UNITS/ML (*)] 12 - 15 units SC BID 11/14/17 [Last Taken 11/25/17 10-12 unit] Metoprolol Tartrate [Lopressor 25 mg (*)] 25 mg PO BID 11/14/17 [Last Taken ] Metolazone [Zaroxolyn 2.5 mg (RX)] 2.5 mg PO HS 11/25/17 [Last Taken 11/24/17] I have personally reviewed and updated: family history, medical history, social history, surgical history - Past Medical History atrial fibrillation (Paroxysmal, recently placed on amiodarone to maintain normal sinus rhythm) Additional medical history: Chronic kidney disease stage 3 with baseline creatinine level 1.5-2.2. Chronic diastolic right-sided heart failure with possible restrictive cardiomyopathy and possible amyloid. Coronary artery disease with last catheterization 2015, no stents. Carotid stenosis 60% on the right, 50% on the left. History of nonischemic cardiomyopathy ejection fraction of 35% 2014, recovered ejection fraction to normal next hypertension. Hyperlipidemia. 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 Chronic right lower extremity wound - Surgical History Additional surgical history: Hernia repair. shoulder repair. Lumbar spine surgery - Family History Additional family history: Mother with myocardial infarction, sibling with congenital heart disease - Social History Smoking Status: Former smoker Alcohol Use: None Drug Use: None Additional social history: Independent in his ADL, reports reduction exercise tonsil is a 1/4 mi Review of Systems Review of Systems: ROS: 10pt was reviewed & negative except for what was stated in HPI & below Cardiac: Reports: edema Respiratory: Reports: shortness of breath Gastrointestinal: Reports: abdominal distention Physical Exam Physical Exam: Temp Pulse Resp BP Pulse Ox 36.4 C 71 16 103/73 96 11/25/17 16:30 11/25/17 16:30 11/25/17 16:30 11/25/17 16:30 11/25/17 16:30 Constitutional: no apparent distress, not in pain, obese, No uncomfortable Eyes: PERRL, anicteric sclera, EOMI Ears, Nose, Mouth, Throat: moist mucous membranes, hearing normal, ears appear normal, no oral mucosal ulcers Cardiovascular: irregularly irregular, JVD, edema (1+ bilateral lower extremities), other (Diminished bilateral dorsalis pedis pulses), No systolic murmur, No tachycardia Respiratory: no respiratory distress, no rales or rhonchi, clear to auscultation , No inspiratory crackles, No respiratory distress Gastrointestinal: normoactive bowel sounds, ascites, distension (Moderate), No tenderness, No guarding Skin: other (Right 4th digit ulceration on the dorsal surface without surrounding erythema, dusky skin, blanchable) Neurologic: AAOx3, No sensation intact bilaterally (Subjective paresthesias bilateral lower extremities), No weakness (Motor strength 5/5 bilateral lower extremities) Psychiatric: interacting appropriately, not encephalopathic, poor memory (Does not recall when he also saw Dr. Briones yesterday), No agitated Lab Data & Imaging Review 11/25/17 14:35 11/25/17 14:35 WBC 8.13 10^3/uL (3.80-9.50) 11/25/17 14:35 RBC 4.03 10^6/uL (4.40-6.38) L 11/25/17 14:35 Hgb 12.2 g/dL (13.7-17.5) L 11/25/17 14:35 Hct 39.3 % (40.0-51.0) L 11/25/17 14:35 MCV 97.5 fL (81.5-99.8) 11/25/17 14:35 MCH 30.3 pg (27.9-34.1) 11/25/17 14:35 MCHC 31.0 g/dL (32.4-36.7) L 11/25/17 14:35 RDW 14.6 % (11.5-15.2) 11/25/17 14:35 Plt Count 249 10^3/uL (150-400) 11/25/17 14:35 MPV 8.7 fL (8.7-11.7) 11/25/17 14:35 Neut % (Auto) 77.3 % (39.3-74.2) H 11/25/17 14:35 Lymph % (Auto) 9.3 % (15.0-45.0) L 11/25/17 14:35 Stephenson % (Auto) 7.3 % (4.5-13.0) 11/25/17 14:35 Eos % (Auto) 4.6 % (0.6-7.6) 11/25/17 14:35 Baso % (Auto) 0.9 % (0.3-1.7) 11/25/17 14:35 Nucleat RBC Rel Count 0.0 % (0.0-0.2) 11/25/17 14:35 Absolute Neuts (auto) 6.29 10^3/uL (1.70-6.50) 11/25/17 14:35 Absolute Lymphs (auto) 0.76 10^3/uL (1.00-3.00) L 11/25/17 14:35 Absolute Monos (auto) 0.59 10^3/uL (0.30-0.80) 11/25/17 14:35 Absolute Eos (auto) 0.37 10^3/uL (0.03-0.40) 11/25/17 14:35 Absolute Basos (auto) 0.07 10^3/uL (0.02-0.10) 11/25/17 14:35 Absolute Nucleated RBC 0.00 10^3/uL (0-0.01) 11/25/17 14:35 Immature Gran % 0.6 % (0.0-1.1) 11/25/17 14:35 Immature Gran # 0.05 10^3/uL (0.00-0.10) 11/25/17 14:35 Sodium 135 mEq/L (135-145) 11/25/17 14:35 Potassium 4.3 mEq/L (3.5-5.2) 11/25/17 14:35 Chloride 92 mEq/L (97-110) L 11/25/17 14:35 Carbon Dioxide 25 mEq/l (22-31) 11/25/17 14:35 Anion Gap 18 mEq/L (8-16) H 11/25/17 14:35 BUN 66 mg/dL (7-23) H 11/25/17 14:35 Creatinine 2.3 mg/dL (0.7-1.3) H 11/25/17 14:35 Estimated GFR 27 11/25/17 14:35 Glucose 89 mg/dL (70-100) 11/25/17 14:35 Calcium 9.4 mg/dL (8.5-10.4) 11/25/17 14:35 Magnesium 2.7 mg/dL (1.6-2.3) H 11/25/17 14:35 Total Bilirubin 1.1 mg/dL (0.1-1.4) 11/25/17 14:35 AST 64 IU/L (17-59) H 11/25/17 14:35 ALT 41 IU/L (21-72) 11/25/17 14:35 Alkaline Phosphatase 151 IU/L (38-126) H 11/25/17 14:35 Troponin I 0.066 ng/mL (0.000-0.034) H 11/25/17 14:35 NT-Pro-B Natriuret Pep 8860 pg/mL (0-450) H 11/25/17 14:35 Total Protein 7.9 g/dL (6.3-8.2) 11/25/17 14:35 Albumin 4.2 g/dL (3.5-5.0) 11/25/17 14:35 Assessment & Plan Assessment: 82-year-old male presenting with acute on chronic diastolic congestive heart failure exacerbation complicated by cirrhosis and chronic kidney disease stage III Plan: 1. Diastolic congestive heart failure exacerbation. Acute, right-sided, evidenced by hypovolemia, positive JVD, weight gain of 4 kg from discharge on 11/16/2017 -discussed with Dr. Juan Francisco Briones, we believe that the patient's hypovolemia is likely multifactorial in the setting of chronic kidney disease, cirrhosis, an element of diastolic CHF with predominant right-sided features -it is unlikely that the patient has an overt restrictive cardiomyopathy given that he does not demonstrate features of left-sided disease -check chest x-ray to gauge baseline prior to diuresis -BNP elevated, troponin elderly elevated signifying heart strain and increased risk of worsening morbidity -patient was recently taking 40 mg of oral Lasix twice daily and prior to his most recent hospitalization he had been on 80 mg twice daily with metolazone, Dr. Briones recommends initiating IV Lasix 80 mg 2-3 times daily, will initiate twice daily dosing and gauge effect -monitor strict I&Os, daily weights -will hold off on left and right heart catheterization at this time but may be indicated if other etiologies of hypovolemia are inconclusive 2. Chronic kidney disease stage 3. Reviewed outside records including 2017 labs demonstrating creatinine 2.5 and BUN at 92, in the setting of recent reduction in diuretics, most likely stay to renal hypoperfusion in the setting of poor cardiac output from above -repeat creatinine level 2.3 today, trending closer to his baseline -patient recently had kappa and lambda light chain assessment, both were elevated, but had a normal ratio -discussed with Dr. Hany Amin, consultation appreciated, will assist in management of diuresis and bouncing renal function 3. Cirrhosis. Chronic, based on recent liver ultrasound and presence of ascites, in the past has been theorized that the patient's ascites and transaminitis was from passive hepatic congestion in the setting of CHF, but there is concern whether the patient has a cirrhosis is 1 of the primary contributor to his lability -check ferritin level -consulted with Dr. Alejandro Siddiqui -hold on further imaging at this time 4. Pressure injury. Present on admission, right 4th digit dorsal surface, reviewed outside records including 11/16/[address]Wael Gan, recognizing the lesion and evaluated with MRI, unclear whether the patient had underlying osteo, treated with 7 days of Augmentin, with podiatry referral -patient has yet to receive Podiatry evaluation as an outpatient, given his rehospitalization -recommend that he use staff with Podiatry after this hospitalization -wound care consultation appreciated 5. Coronary artery disease. Chronic, continue home medications, last cardiac catheterization 2015 without any flow-limiting stenosis 6. Atrial fibrillation. Persistent, patient recently initiated on renally dosed amiodarone -once patient is euvolemic, consideration will be given to cardioversion to optimize cardiac output -continue renal to Eliquis 7. Diabetes mellitus type 2 with neuropathy. Continue home medications Diet. Cardiac Prophylaxis. High risk patient, currently on Eliquis Code. Full per patient, his is MD REY Disposition. Anticipated discharge uncertain, anticipated length stay is greater than 48 hr warranting inpatient admission status for reasonable medical necessity including acute CHF exacerbation setting of high risk comorbid chronic disease stage III, chronic cirrhosis, dyspnea atrial fibrillation.
--- NOTE | 2017-11-25 16:47 | PDCARPN ---
Cardiology Progress Note Assessment/Plan: Patient seen briefly this afternoon. I had a phone conversation this morning with his usual chief controller tower, Dr. Briones. Mr Jes has a history of a prior nonischemic cardiomyopathy with normalization of his LV systolic function on medical therapy. He has demonstrated fairly refractory fluid overload/right heart failure. Adequate therapy to resolve fluid overload has been limited by chronic renal insufficiency. He was hospitlaized electively on 11/14 for an attempt at inpatient diuresis and with intent of getting input from Nephrology and Gastroenterology. A recent abdominal ultrasound demonstrated moderate ascities and liver appearance suggestive of cirrhosis. His last hospital stay was ended prematurely at the patient's request due to his perception that " there was not much happening very quickly". The main issue at hand is that he repeatedly presnts with fluid overload resmbling right-sided CHF in the absence of a history of pulmonary disease or evidence of pulmonary hypertension on echo. Nephrology saw the patient during his last hospital stay. He is not nephotic. A comment was made on his last echo report regarding myocardial appearance potentially suggestive of amyloid. An SPEP was negative for paraproteinemia. If this were an infiltrative cardiomyopathy, producing restrictive hemodynamics, evidence of left-sided heart failure would be expected as well. Pending results of GI evaluation, consideration can be given to a hemodynamic right and left heart cath. He had no atherosclerotic disease on cath in 2016. 11/25/17 16:47 Objective: Vital Signs (8 Hrs) Temp Pulse Resp BP Pulse Ox 11/25/17 16:30 36.4 C 71 16 103/73 96 11/25/17 14:19 36.3 C 76 16 103/75 97 Intake/Output (24 Hrs) 11/24/17 11/25/17 11/26/17 05:59 05:59 05:59 Output Total 275 Balance -275 Output: Urine (ml) 275 Urinal 275 Other: Weight 95.1 kg Result Diagrams: 11/25/17 14:35 11/25/17 14:35 Cardiac Labs: Cardiac Lab Results (72 Hrs) 11/25/17 14:35 Troponin I 0.066 H - Physical Exam Constitutional: no apparent distress (No exam today.) ICD10 Worksheet Patient Problems: Problems Problem Status Onset Anasarca Acute Chronic Disease Mgmt/Transitional Care Acute Combined systolic and diastolic heart failure Acute
[2017-11-25] MEDS: glipiZIDE 5 MG TAB PO SCH ×2 (17:17→17:37)
[2017-11-25] MEDS: METOPROLOL TARTRATE 25 MG TAB PO SCH (20:52)
[2017-11-25] MEDS: APIXABAN 2.5 MG TAB PO SCH (20:52)
[2017-11-25] MEDS: AMIODARONE HCL 200 MG TAB PO SCH (20:52)
[2017-11-25] MEDS: ATORVASTATIN CALCIUM 10 MG TAB PO SCH (20:52)
[2017-11-25] MEDS: ASPIRIN 81 MG CHEWABLE TAB PO SCH (20:52)
[2017-11-25] MEDS: INSULIN GLARGINE 100 UNITS/ML UNIT SC SCH (20:55)
[2017-11-25] MEDS ORDERED: INSULIN GLARGINE 12 UNIT SC SCH (21:00)
--- NOTE | 2017-11-25 22:00 | GCON ---
[f rep st] CONSULTATION DATE OF CONSULTATION: 11/25/2017 REASON FOR CONSULTATION: Chronic renal failure. HISTORY OF PRESENT ILLNESS: I have been asked to evaluate this patient regarding his chronic renal f ailure. He is an 82-year-old gentleman with history of biventricular heart failure that has apparent ly improved over the past few years. He also has a history of chronic renal failure. He was seen in the office twice by my partner, Dr. Will, approximately 1 year ago. At that time, he had a stable c reatinine between 1.5 and 2 without proteinuria. He did have extremely low-grade microalbuminuria. He had no active urinary sediment. A serologic evaluation was performed; this was negative aside fro m hypocomplementemia and an elevated rheumatoid factor. The plan was to repeat these studies; jermaine guerin, the patient refused to follow up after his second appointment. His creatinine appears to be quite labile with frequent excursions to greater than 2. He was seen by Dr. Robertson during a brief hosp italization 2 weeks ago. At that time, he was admitted for worsened volume overload and a creatinine of 2.4. The patient was discharged home without having any significant intervention. He is readmit nury today for worsened volume overload; his creatinine is 2.3. I have been asked to come visit with him this evening to comment on this. He actually states that he feels relatively well. He believes his abdominal girth may be slightly less than it was previously. He denies any significant shortness of breath above the baseline that he has had for the past year or two. He denies any chest pain. Shanika arizmendi is not taking NSAIDs currently. A renal ultrasound during his previous admission was negative for hydronephrosis. He is uncertain about his current diuretic dosing. According to the chart, it is a combination of furosemide and metolazone, though he may have been on spironolactone recently as well. PAST MEDICAL HISTORY: 1. Longstanding hypertension. 2. Type 2 diabetes mellitus. 3. Hyperlipidemia. 4. Biventricular heart failure, with improvement over the past few years. 5. Spinal stenosis. 6. Paroxysmal atrial fibrillation. 7. Carotid artery stenosis. PAST SURGICAL HISTORY: 1. Hernia repair. 2. Shoulder surgery. 3. Lumbar spine surgery. ALLERGIES: EVERT inhibitors. ADMISSION MEDICATIONS: Metolazone 2.5 mg nightly, Lasix 40 mg twice daily, metoprolol 25 mg twice da [facility], Eliquis 2.5 mg twice daily, amiodarone 200 mg twice daily, Trulicity 0.75 mg daily, aspirin 81 m g daily, glipizide twice daily, Zocor 20 mg daily, vitamin B complex daily, vitamin D3 daily, and her bal supplements. He also uses insulin. SOCIAL HISTORY: He is a former smoker and drinks alcohol occasionally. [place] [facility] and did construction and factory work. FAMILY HISTORY: Positive for diabetes and cardiac disease, as well as hypertension. REVIEW OF SYSTEMS: He has noted some abdominal distention and lower extremity edema, though he belie ves these are stable. He has chronic peripheral neuropathy. He denies any shortness of breath or ch est pain, as previously noted. He has chronic breathlessness, but does not believe this has worsened . Aside from other positives noted in HPI, the remainder of a 10-organ system review is negative. PHYSICAL EXAMINATION: GENERAL: He is in no acute distress. VITAL SIGNS: Blood pressure 105/69, he art rate is 80, oxygenation is 94% on room air. HEENT: Sclerae are anicteric. Oral mucosa is moist . Oropharynx is clear. NECK: Supple without lymphadenopathy. JVD does appear to be elevated to ne judy the angle of the jaw while sitting upright. I do not appreciate carotid bruits. LUNGS: Fairly clear to auscultation bilaterally with the exception of some diminished breath sounds at the bases. BACK: No CVA tenderness. HEART: Regular rate and rhythm with frequent ectopy, 2/6 systolic murmur , no gallops or rubs. ABDOMEN: Distended but nontender. Abdominal wall edema is present. I cannot appreciate hepatosplenomegaly, masses, or bruits. EXTREMITIES: 1-2+ edema is present in his lower extremities bilaterally, though this is not as severe as his abdominal distention. His feet are warm and appear well perfused. I cannot definitively appreciate pedal pulses. SKIN: No skin rashes. N EUROLOGIC: He is awake, alert, and appropriate. There is no facial droop. : A Dudley catheter is absent. LABORATORY DATA: Sodium 135, potassium 4.3, chloride 95, CO2 25, BUN 66, creatinine 2.3, glucose 89, calcium 9.4, magnesium 2.7, albumin 4.2. Brain natriuretic peptide 8860. White blood cell count 8. 1, hemoglobin 12.2, platelets 249. IMPRESSION AND PLAN: 1. Chronic renal failure: This patient's creatinine does appear to have increased slightly over the past year. This seems to be in conjunction with worsened volume status. I suspect this is all due to cardiac decompensation. He has no proteinuria or active urinary sediment to suggest a glomerular process, and I do suspect a large component of his renal insufficiency is hemodynamic. He very well may have underlying hypertensive and/or diabetic renal disease at his baseline. I suspect that any i nterventions that could lead to improve cardiac output would likely lead to a lower serum creatinine. I understand a right heart catheterization is being considered by Cardiology; I would encourage thi s. His creatinine may actually improve with diuresis, therefore I would continue his current diureti cs for now. I would discourage any contrast-enhanced imaging studies or angiographic procedures unle ss absolutely necessary. 2. Volume overload: This appears to have worsened significantly over the past year, as he was noted to have no edema when seen by Dr. Will 1 year ago. I do suspect that this is primarily due to cardi ac issues, though certainly his renal insufficiency is not helping. He is currently on IV Lasix and metolazone; this seems reasonable for now. He apparently did have some at least mild hyperkalemia wh ile on spironolactone; therefore, I would avoid this for the time being. As noted above, he has no p roteinuria and is not nephrotic. Certainly, liver disease could be contributing, though his normal s tyra albumin would argue somewhat against this. I believe Gastroenterology has been asked to see him as well. 3. Hypertension: His blood pressure is very well controlled, and he actually appeared to have been borderline hypotensive during his last admission. I would simply continue his current medications, t lilliana his renal function may do better with slightly higher blood pressure. I would absolutely avoid EVERT inhibitors and angiotensin receptor blockers, given the concern for cardiorenal syndrome. Thank you for the consultation. We will follow with you. /[id number]/MODL
--- NOTE | 2017-11-26 07:56 | SOAPPROG ---
SOAP Progress Note Assessment/Plan: Assessment: 1. SAUMYA on CKD 3. Likely cardiorenal syndrome. Has longstanding DM, no proteinuria last year. Repeat urine P:C. May improve with diuresis. Avoid carolyn/arb at this time. 2. CHF. Appears to primarily be RHF at this time. Etiology unknown. Infiltrative/ischemic? Agree with further cards eval/RHC/possible LHC pending GI eval for cirrhosis ( congestive?). Normal free light chains earlier this mo. Check SPEP/ROSANA. Continue scheduled IV lasix. May need to add metolazone if not responding. Plan: 11/26/17 07:54 11/26/17 07:56 11/26/17 08:02 11/26/17 08:03 Subjective: C/o decreased stamina x 6 months. Swelling mostly in abdomen. Can go up flight of stairs. Chronic orthopnea. Denies more than rare EtOH use. Objective: Vital Signs Temp Pulse Resp BP Pulse Ox 36.6 C 73 17 106/66 95 11/26/17 04:00 11/26/17 04:00 11/26/17 04:00 11/26/17 04:00 11/26/17 04:00 Laboratory Results 11/25/17 14:35 11/26/17 04:20 11/25/17 11/26/17 11/27/17 05:59 05:59 05:59 Intake Total 790 Output Total 1250 Balance -460 In chair, in street clothing, NAD, alert wm RRR, no m/g/r; JVD at ear while sitting CTAB Abdom obese, distended, soft, nontender 2+ sacral, tr ankle pitting edema Echo 11/14/17: EF 55-60% LVH, mod-svr LAE, BRITTNI, basal/inferior wma, mod TR ICD10 Worksheet Patient Problems: Problems Problem Status Onset Chronic Disease Mgmt/Transitional Care Acute Anasarca Acute Combined systolic and diastolic heart failure Acute
[2017-11-26] MEDS: AMIODARONE HCL 200 MG TAB PO SCH ×2 (08:11→21:40)
[2017-11-26] MEDS: APIXABAN 2.5 MG TAB PO SCH ×2 (08:11→21:40)
[2017-11-26] MEDS: FUROSEMIDE 100 MG/10 ML VIAL IVP SCH ×2 (08:11→15:14)
[2017-11-26] MEDS: INSULIN GLARGINE 100 UNITS/ML UNIT SC SCH ×2 (08:12→21:43)
[2017-11-26] MEDS: glipiZIDE 5 MG TAB PO SCH ×2 (08:12→17:52)
[2017-11-26] MEDS: METOPROLOL TARTRATE 25 MG TAB PO SCH ×2 (09:34→21:40)
--- NOTE | 2017-11-26 14:56 | WOCRNPDOC ---
[facility] Advanced Assessment Note - Skin Integrity Problem, Advanced Assess Right Upper Back Dressing Type: Open to Air Exudate Amount: None Ele Wound Tissue: Blanching, Erythema (minimal and only lee wound) Wound Bed Color: Brown, Yellow Wound Bed Constitution: Mixed Loose & Adhered Slough/Eschar Site Measurement - Head-to-Toe Length X Width X Depth (cm): 1x0.5x0.3 Skin Integrity Problem Comment: Unknown etiology. Patient reports "it just errupted". Will initiate autolytic debridment with silvasorb. Wound care will recheck in one week. Antionette MORELOS assissted with care. Right Fourth Toe Dressing Type: Open to Air Lee Wound Tissue: Calloused, Hyperkeratotic Wound Bed Constitution: Scab Wound Edges: Attached, Thick Site Measurement - Head-to-Toe Length X Width X Depth (cm): 0.5x0.5xscab Skin Integrity Problem Comment: Patient should follow up with data management specialist/foot machine shop specialist as he had planned. Wound care will sign off.
--- NOTE | 2017-11-26 14:58 | ASMTCMCOM ---
CM Note CM Note Notes: 11/26/2017 Case Management Note Met with pt and Luann in rounds this morning. Pt admitted for CHF, anasarca and cirrhosis. Pt declined PT this morning and is ambulating without difficulty. There are no other case management d/c needs identified. Case Management d/c poc: anticipating independent with follow up as directed. Case Management available if needs change. Date Signed: 11/26/2017 02:32 PM Electronically Signed By:Tamia Li RN
--- NOTE | 2017-11-26 15:55 | PDMN ---
Medical Necessity Medical necessity: Change to IP, as of 11/25/17, per MD; los >2 mn for ongoing management of acute diastolic CHF exacerbation & pressure injury; admit for further workup/monitoring, IV diuresis, Nephrology/Wound Care consult; hx CKD stage 3, chronic cirrhosis, AFIB on AC, diabetes, CAD; per progress note & order 11/25/17
--- NOTE | 2017-11-26 17:39 | GCON ---
[f rep st] CONSULTATION REFERRING PHYSICIAN: Barrett Israel MD CHIEF COMPLAINT: Ascites in the setting of right heart failure. HISTORY OF PRESENT ILLNESS: I have been asked to see this 82-year-old gentleman in consultation from Dr. Israel for a history of right heart failure, ascites, questionable liver disease. This gentleman has chronic renal failure with a prior history of biventricular heart failure. He also has chronic renal failure. He has had an elevated creatinine of 1.5-2 dating over the last year. He was admitted to the hospital for worsening volume overload with a creatinine of 2.4. He had a previous renal ultrasound without hydronephrosis. He had a recent ultrasound that showed a moderate amount of ascites and questionable lobularity of the liver. He is maintained on diuretics. 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 PAST SURGICAL HISTORY: Remarkable for herniorrhaphy, shoulder surgery, lumbar spine surgery. ALLERGIES: EVERT inhibitors. MEDICATIONS: Metolazone 2.5 mg nightly, Lasix 40 mg twice a day, metoprolol 25 mg daily, Eliquis 2.5 mg daily, amiodarone 200 mg twice daily, Trulicity 0.75 mg daily, aspirin 81 mg daily, glipizide, Zocor, vitamin B complex, vitamin D3, herbal supplements, and insulin. SOCIAL HISTORY: He is a prior smoker. Drinks alcohol occasionally. He is from [place]. FAMILY HISTORY: Remarkable for diabetes mellitus, cardiac disease, hypertension , otherwise negative as it pertains to chief complaint. REVIEW OF SYSTEMS: Negative 10 systems other than mentioned in HPI. PHYSICAL EXAM: VITAL SIGNS: 105/69, respiratory rate 16, 94% sat on room air. Heart rate is 80. HEENT: Normocephalic, atraumatic. No scleral icterus. Mucous membranes moist. NECK: Supple without adenopathy. No thyromegaly but does have positive JVD. LUNGS: Clear. CARDIAC: Normal S1, S2, with a 2/6 systolic ejection murmur. ABDOMEN: Distended, nontender. Abdominal wall edema. No hepatosplenomegaly. EXTREMITIES: 1 to 2+ edema. No clubbing or cyanosis. SKIN: Warm, dry, intact. PSYCH: Alert and oriented x3 with normal affect. NEURO: Nonfocal. LABORATORY DATA: Serum sodium 135, potassium 4.6, chloride 95, CO2 26, BUN of 71, creatinine 2.4, blood sugar 106. Hemoglobin of 12.2 with hematocrit 39.3. PTT of 19.4 with INR 1.63. Platelets of 249. Albumin 3.4. IMPRESSION: An 82-year-old gentleman with a history of heart failure and right heart failure. He certainly could have a component of passive congestion of the liver with fluid overload. He is a diabetic and may have underlying BENITEZ contributed to liver disease. The patient has a moderate amount of ascites from possible liver disease or right heart failure. The patient has been on diuretics. He does have normal synthetic function with previously normal albumin and normal platelet count. The picture is more consistent with right heart failure rather than liver disease. RECOMMENDATIONS: A 2 g low sodium diet. Diuretics as tolerated. If becomes uncomfortable with ascites or more SO he may benefit at least from a paracentesis. Will review imaging of the liver with radiology. We will follow with you. /[id number]/MODL MTDD
--- NOTE | 2017-11-26 18:39 | HOSPPROG ---
Hospitalist Progress Note Assessment/Plan: * Volume overload -right heart failure vs. cirrhosis -IV lasix * Acute on chronic renal failure -cardiorenal * Acute on chronic diastolic CHF -cards considering right/left heart cath -possible amyloid cardiomyopathy? * Possible cirrhosis - BENITEZ vs passive congestion -consider paracentesis of ascites * Afib -renal dose Eliquis -? 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 Objective: Vital Signs Temp Pulse Resp BP Pulse Ox 36.5 C 67 15 106/67 97 11/26/17 15:07 11/26/17 15:07 11/26/17 15:07 11/26/17 15:07 11/26/17 15:07 Laboratory Results 11/25/17 14:35 11/26/17 04:20 11/25/17 11/26/17 11/27/17 05:59 05:59 05:59 Intake Total 790 500 Output Total 1250 1450 Balance -460 -950 US legs - negative CXR viewed, my personal interpretation is - possible chf - Physical Exam Constitutional: no apparent distress, appears nourished, not in pain Cardiovascular: regular rate and rhythym, no murmur, rub, or gallop, edema (2+) Respiratory: no respiratory distress, no rales or rhonchi, clear to auscultation Gastrointestinal: normoactive bowel sounds, soft, non-tender abdomen, no palpable masses, ascites Skin: no rashes or abrasions, no fluctuance, no induration Neurologic: AAOx3, sensation intact bilaterally Psychiatric: interacting appropriately, not anxious, not encephalopathic, thought process linear ICD10 Worksheet Patient Problems: Problems Problem Status Onset Anasarca Acute Chronic Disease Mgmt/Transitional Care Acute Combined systolic and diastolic heart failure Acute
[2017-11-26] MEDS: ATORVASTATIN CALCIUM 10 MG TAB PO SCH (21:40)
[2017-11-26] MEDS: ASPIRIN 81 MG CHEWABLE TAB PO SCH (21:40)
[2017-11-27 04:42] LABS: PLATELET COUNT 228 10^3/uL (150-400)
[2017-11-27] MEDS: APIXABAN 2.5 MG TAB PO SCH ×2 (09:08→21:12)
[2017-11-27] MEDS: AMIODARONE HCL 200 MG TAB PO SCH ×2 (09:08→21:12)
[2017-11-27] MEDS: METOPROLOL TARTRATE 25 MG TAB PO SCH ×2 (09:08→21:12)
[2017-11-27] MEDS: FUROSEMIDE 100 MG/10 ML VIAL IVP SCH ×2 (09:09→14:52)
--- NOTE | 2017-11-27 11:08 | SOAPPROG ---
SOAP Progress Note Assessment/Plan: Assessment: 1. SAUMYA on CKD 3. Likely cardiorenal syndrome. Creat stable. Has longstanding DM, no proteinuria last year. Repeat urine P:C shows only ~ 500mg. May improve with diuresis. Avoid carolyn/arb at this time. 2. CHF. Appears to primarily be RHF at this time. Etiology unknown. Infiltrative/ischemic? Agree with further cards eval/RHC/possible LHC. GI eval for cirrhosis ( congestive?). Normal free light chains earlier this mo. Check SPEP/ROSANA. Continue scheduled IV lasix. UOP improving this am. May need to add po metolazone if not responding. Plan: 11/26/17 07:54 11/26/17 07:56 11/26/17 08:02 11/26/17 08:03 11/27/17 11:07 11/27/17 11:08 11/27/17 11:09 Subjective: No complaints today. Had V/Q scan this am. Objective: Vital Signs Temp Pulse Resp BP Pulse Ox 36.6 C 61 18 101/64 96 11/27/17 08:00 11/27/17 08:00 11/27/17 08:00 11/27/17 08:00 11/27/17 08:00 Laboratory Results 11/27/17 04:06 11/27/17 04:06 11/26/17 11/27/17 11/28/17 05:59 05:59 05:59 Intake Total 790 800 Output Total 1250 1950 600 Balance -460 -1150 -600 comfortable wm, in chair, NAD RRR, no m/g/r CTAB Abdom distended, dull to percussion 3+ LE pitting edema ICD10 Worksheet Patient Problems: Problems Problem Status Onset Anasarca Acute Chronic Disease Mgmt/Transitional Care Acute Combined systolic and diastolic heart failure Acute
--- NOTE | 2017-11-27 11:49 | SOAPPROG ---
SOAP Progress Note Assessment/Plan: Assessment: 83 year old gentleman with anasarca, ascites and history of heart failure. Reviewed prior imaging with Dr. Gonzalez. U/S and prior MRI without convincing evidence of liver disease. Also labs would go against liver disease. I suspect patient has right heart failure contributing to edema and ascites. If more objective data is required she could place a catheter in the right atrium and measure right heart pressure, measure IVC pressures and obtain a hepatic wedge pressure to evaluate for evidence of portal hypertension. Ultimately she could also do a transjugular liver biopsy to exclude or confirm cirrhosis. Plan: 1. Continue on 2 gram low sodium diet 2. Diuresis and med adjustments per nephrology 3. If becomes symptomatic as far as ascites (SOB or abdominal discomfort) could proceed with paracentesis. 11/27/17 11:40 Subjective: CC: Anasarca, CRD Patient does not complain of SOB or abdominal discomfort Objective: Vital Signs Temp Pulse Resp BP Pulse Ox 36.6 C 61 18 101/64 96 11/27/17 08:00 11/27/17 08:00 11/27/17 08:00 11/27/17 08:00 11/27/17 08:00 Laboratory Results 11/27/17 04:06 11/27/17 04:06 11/26/17 11/27/17 11/28/17 05:59 05:59 05:59 Intake Total 790 800 Output Total 1250 1950 600 Balance -460 -1150 -600 Generic Name Dose Route Start Last Admin Trade Name Freq PRN Reason Stop Dose Admin Acetaminophen 650 mg 11/25/17 10:31 Tylenol PO 05/24/18 10:30 Q4HRS PRN Pain, Mild/Fever, Can Take PO Amiodarone HCl 200 mg 11/25/17 21:00 11/27/17 09:08 Amiodarone Hcl PO 05/24/18 20:59 200 mg BID BAKARI Administration Apixaban 2.5 mg 11/25/17 21:00 11/27/17 09:08 Eliquis PO 05/24/18 20:59 2.5 mg BID BAKARI Administration Aspirin 81 mg 11/25/17 21:00 11/26/17 21:40 Aspirin PO 05/24/18 20:59 81 mg HS BAKARI Administration Atorvastatin Calcium 10 mg 11/25/17 21:00 11/26/17 21:40 Lipitor PO 05/24/18 20:59 10 mg HS BAKARI Administration Cholecalciferol 1,000 units 11/28/17 08:00 Vitamin D PO 05/27/18 07:59 Q3D BAKARI Furosemide 80 mg 11/26/17 09:00 11/27/17 09:09 Lasix Injection IVP 05/25/18 08:59 80 mg BIDDIUR BAKARI Administration Glipizide 5 mg 11/25/17 18:00 11/26/17 17:52 Glucotrol PO 05/24/18 17:59 Not Given BIDMEAL BAKARI Insulin Glargine 12 units 11/25/17 21:00 11/26/17 21:43 Lantus Syringe SC 05/24/18 20:59 Not Given BID BAKARI Metoprolol Tartrate 25 mg 11/25/17 21:00 11/27/17 09:08 Lopressor PO 05/24/18 20:59 25 mg BID BAKARI Administration Miscellaneous Medication 0.75 mg 11/29/17 09:00 Dulaglutide [Trulicity] SQ 05/28/18 08:59 SA BAKARI Ondansetron HCl 4 mg 11/25/17 10:31 Zofran IVP 05/24/18 10:30 Q4HRS PRN Nausea/Vomiting, Can't Take PO Ondansetron HCl 4 mg 11/25/17 10:31 Zofran Odt PO 05/24/18 10:30 Q4HRS PRN Nausea/Vomiting, Use 1st Vitamin B Complex 1 ea 11/28/17 08:00 Vitamin B Complex PO 05/27/18 07:59 Q3D BAKARI Discontinued Medications Generic Name Dose Route Start Last Admin Trade Name Freq PRN Reason Stop Dose Admin Furosemide 80 mg 11/25/17 16:35 11/25/17 17:17 Lasix Injection IVP 11/25/17 16:36 80 mg ONCE ONE Administration Physical Exam - Physical Exam General Appearance: alert, no apparent distress Neck: other (JVD) Respiratory: lungs clear, normal breath sounds Cardiac/Chest: regular rate, rhythm Abdomen: normal bowel sounds, non-tender, distended Extremities: pedal edema Neuro/Psych: no motor/sensory deficits, alert, normal mood/affect ICD10 Worksheet Patient Problems: Problems Problem Status Onset Anasarca Acute Chronic Disease Mgmt/Transitional Care Acute Combined systolic and diastolic heart failure Acute
[2017-11-27] MEDS: glipiZIDE 5 MG TAB PO SCH ×3 (14:13→21:12)
[2017-11-27] MEDS: INSULIN GLARGINE 100 UNITS/ML UNIT SC SCH (14:13)
--- NOTE | 2017-11-27 16:57 | HOSPPROG ---
Hospitalist Progress Note Assessment/Plan: 82-year-old male admitted with shortness of breath and noted to have diastolic CHF along with possible right heart failure. There is addition significant edema and ascites. V/Q scan is pending today to rule out pulmonary disease. There remains a question of amyloid Heart. Cardiac echo shows an EF approximately 30% with significant JVP elevation. Patient new to me today -acute on chronic diastolic CHF with progressive diuresis at this time its improvement. -acute kidney injury stage III with current stable creatinine. It had been hope that his creatinine would improve with diuresis. -question right heart failure versus hepatic failure. CT scan and MRI have been not nondiagnostic. Right heart pressures would be helpful along with Vicente pressures to sort this through. If he remains symptomatic a paracentesis would be useful. Currently the patient is very slowly improving. Plan: Continue current diuresis and evaluate for improvement. We will decide regarding a right heart catheterization by IR tomorrow and Subjective: Reports he feels improved with less shortness of breath. No chest pain nausea vomiting. Objective: Vital Signs Temp Pulse Resp BP Pulse Ox 36.7 C 67 18 84/51 L 93 11/27/17 12:00 11/27/17 12:00 11/27/17 12:00 11/27/17 12:00 11/27/17 12:00 Laboratory Results 11/27/17 04:06 11/27/17 04:06 11/26/17 11/27/17 11/28/17 05:59 05:59 05:59 Intake Total 790 800 Output Total 1250 1950 1400 Balance -460 -5380 1400 - Time Spent With Patient Time Spent with Patient: greater than 35 minutes Time Spent with Patient: Greater than 35 minutes spent on this patients care, greater than 50% of time spent counseling, educating, and coordinating care regarding the above mentioned plan. - Pending Discharge Pending Discharge Within 24 Hours: No Pending Discharge Within 48 Hours: No - Physical Exam Constitutional: no apparent distress, chronically ill appearing Eyes: PERRL, anicteric sclera Ears, Nose, Mouth, Throat: moist mucous membranes, hearing normal Cardiovascular: regular rate and rhythym, systolic murmur Respiratory: no respiratory distress, reduced air movement Gastrointestinal: normoactive bowel sounds, soft, non-tender abdomen, ascites, distension Skin: warm Musculoskeletal: generalized weakness Neurologic: AAOx3, CN II-XII Intact Psychiatric: interacting appropriately ICD10 Worksheet Patient Problems: Problems Problem Status Onset Chronic Disease Mgmt/Transitional Care Acute Anasarca Acute Combined systolic and diastolic heart failure Acute
[2017-11-27] MEDS: ATORVASTATIN CALCIUM 10 MG TAB PO SCH (21:11)
[2017-11-27] MEDS: ASPIRIN 81 MG CHEWABLE TAB PO SCH (21:12)
[2017-11-28 04:51] LABS: PLATELET COUNT 232 10^3/uL (150-400)
[2017-11-28] MEDS ORDERED: CHOLECALCIFEROL VIT D3 1,000 UNITS TAB PO SCH (08:00)
[2017-11-28] MEDS ORDERED: VITAMIN B COMPLEX 1 EA CAP/TAB PO SCH (08:00)
[2017-11-28] MEDS ORDERED: METOLAZONE 5 MG TAB PO ONE (09:00)
[2017-11-28] MEDS: APIXABAN 2.5 MG TAB PO SCH (09:02)
[2017-11-28] MEDS: METOPROLOL TARTRATE 25 MG TAB PO SCH (09:02)
[2017-11-28] MEDS: AMIODARONE HCL 200 MG TAB PO SCH (09:03)
[2017-11-28] MEDS: FUROSEMIDE 100 MG/10 ML VIAL IVP SCH ×2 (09:03→13:46)
[2017-11-28] MEDS: glipiZIDE 5 MG TAB PO SCH (09:17)
--- NOTE | 2017-11-28 09:48 | SOAPPROG ---
SOAP Progress Note Assessment/Plan: Assessment: 82 y/o M with CKD and CHF who presented with SAUMYA and volume overload most likely cardiorenal syndrome. 1. SAUMYA on CKD 3: Creat stable at 2.4mg/dL today Also has underlying DM Repeat urine P:C shows only ~500mg. Avoid carolyn/arb at this time 2. CHF w/ volume overload: Etiology unknown, consideration of amyloid. May not have MRI with sameer Agree with further cards eval/RHC/possible LHC, mild trop elevation GI eval for liver cirrhosis, consideration of paracentesis Normal free light chains earlier this mo. Checking SPEP/ROSANA. Continue scheduled IV lasix and metolazone with goal net negative 1-2L per day Fluid restriction and low salt diet. 3. BMD -phos low 5's -monitor daily labs and phos 4. SOB -s/p VQ scan low prob 11/28/17 09:48 11/28/17 09:49 Subjective: No complaints. UO 2.5L yest. Objective: Vital Signs Temp Pulse Resp BP Pulse Ox 36.6 C 76 16 120/69 93 11/28/17 07:36 11/28/17 09:02 11/28/17 07:36 11/28/17 09:02 11/28/17 07:36 Laboratory Results 11/28/17 04:12 11/28/17 04:12 11/27/17 11/28/17 11/29/17 05:59 05:59 05:59 Intake Total 800 1700 Output Total 1950 2550 Balance -1150 -850 Physical Exam - Physical Exam General Appearance: other (Ill-appearing) EENT: PERRL/EOMI, normal ENT inspection Neck: non-tender, full range of motion, supple Respiratory: decreased breath sounds, crackles Cardiac/Chest: regular rate, rhythm, edema, JVD Abdomen: normal bowel sounds, non-tender, soft, distended Skin: normal color, warm/dry, pallor Extremities: pedal edema Neuro/Psych: no motor/sensory deficits, alert, oriented x 3 ICD10 Worksheet Patient Problems: Problems Problem Status Onset Anasarca Acute Chronic Disease Mgmt/Transitional Care Acute Combined systolic and diastolic heart failure Acute
--- NOTE | 2017-11-28 10:39 | PDCARPN ---
Cardiology Progress Note Assessment/Plan: Mr Andre has a history of a prior nonischemic cardiomyopathy with normalization of his LV systolic function on medical therapy. He has demonstrated fairly refractory fluid overload/right heart failure. Adequate therapy to resolve fluid overload has been limited by chronic renal insufficiency. He was hospitlaized electively on 11/14 for an attempt at inpatient diuresis and with intent of getting input from Nephrology and Gastroenterology. A recent abdominal ultrasound demonstrated moderate ascities and liver appearance suggestive of cirrhosis. The main issue at hand is that he repeatedly presnts with fluid overload resmbling right-sided CHF in the absence of a history of pulmonary disease or evidence of pulmonary hypertension on echo. Nephrology saw the patient during his last hospital stay. He is not nephotic. A comment was made on his last echo report regarding myocardial appearance potentially suggestive of amyloid. An SPEP was negative for paraproteinemia. If this were an infiltrative cardiomyopathy, producing restrictive hemodynamics, evidence of left-sided heart failure would be expected as well. Appreciate input from Nephrology and Gastroenterology. Case was discussed with Dr. Siddiqui (GI) and Dr. Gonzalez (IR). Measurement of hepatic venous pressure gradient would clarify whether or not he has portal hypertension to explain his ascites. Will plan for HPVG measurement with liver biopsy by IR followed by R and L heart cath for restrictive hemodynamics. 11/28/17 10:41 Reviewed/Discussed With: hospitalist Objective: Vital Signs (8 Hrs) Temp Pulse Resp BP Pulse Ox 11/28/17 09:02 76 120/69 11/28/17 07:36 36.6 C 76 16 120/69 93 11/28/17 04:00 36.9 C 65 16 93/56 L 94 Intake/Output (24 Hrs) 11/27/17 11/28/17 11/29/17 05:59 05:59 05:59 Intake Total 800 1700 Output Total 1950 2550 Balance -1150 -850 Intake: Oral (ml) 800 1700 IV Intake (ml) 0 0 Output: Urine (ml) 1950 2550 Urinal 1950 2550 Other: Weight 92.9 kg 93.3 kg Number of Voids Urinal 2 2 Result Diagrams: 11/28/17 04:12 11/28/17 04:12 Cardiac Labs: Cardiac Lab Results (72 Hrs) 11/27/17 11/26/17 11/25/17 04:06 18:38 14:35 Troponin I 0.058 H 0.054 H 0.066 H - Physical Exam Constitutional: no apparent distress Eyes: anicteric sclera Ears, Nose, Mouth, Throat: moist mucous membranes Cardiovascular: regular rate and rhythm, no murmurs Gastrointestinal: no tenderness, other (distended) Skin: other (2+ LE edema) Neurologic: AAOx3 Psychiatric: not anxious ICD10 Worksheet Patient Problems: Problems Problem Status Onset Anasarca Acute Chronic Disease Mgmt/Transitional Care Acute Combined systolic and diastolic heart failure Acute
[2017-11-28 10:47] LABS: INR 1.55 (0.83-1.16); PROTIME(PATIENT) 18.7 SEC (12.0-15.0)
[2017-11-28 12:09] VITALS: BP 118/76; PULSE 65; RESP 18; TEMP 97.5; O2SAT 97
--- NOTE | 2017-11-28 12:16 | ASMTCMCOM ---
CM Note CM Note Notes: Neurology and gastroenterology have been consulted. Today's current plan is for a liver biopsy by IR followed by R heart cath. Case Management will continue to monitor patient's condition and order PT/OT if warranted. Otherwise, he has been planning to discharge home independently with his . Date Signed: 11/28/2017 12:16 PM Electronically Signed By:Lynne Saucedo RN
[2017-11-28] MEDS ORDERED: FAMOTIDINE 20 MG TAB PO ONE (12:32)
--- NOTE | 2017-11-28 12:58 | SOAPPROG ---
SOAP Progress Note Assessment/Plan: Assessment: 83 year old gentleman with anasarca, ascites and history of heart failure. Unclear cause of ascites and anasarca. C/w right heart failure. No other findings c/w liver disease or cirrhosis. Patient to have right heart catheterization today with right heart pressures, hepatic wedge pressure and transjugular liver biopsy. Plan: Right heart catheterization today and liver biopsy as above. 11/28/17 12:54 Subjective: CC: Ascites and Anasarca Patient laying flat in bed, NAD. Waiting for IR procedure. Objective: Vital Signs Temp Pulse Resp BP Pulse Ox 36.4 C 65 18 118/76 97 11/28/17 12:00 11/28/17 12:00 11/28/17 12:00 11/28/17 12:00 11/28/17 12:00 Laboratory Results 11/28/17 04:12 11/28/17 04:12 11/27/17 11/28/17 11/29/17 05:59 05:59 05:59 Intake Total 800 1700 Output Total 1950 2550 1300 Balance -1150 -850 -1300 PT 18.7 SEC (12.0-15.0) H 11/28/17 10:25 INR 1.55 (0.83-1.16) H 11/28/17 10:25 Generic Name Dose Route Start Last Admin Trade Name Freq PRN Reason Stop Dose Admin Acetaminophen 650 mg 11/25/17 10:31 Tylenol PO 05/24/18 10:30 Q4HRS PRN Pain, Mild/Fever, Can Take PO Amiodarone HCl 200 mg 11/25/17 21:00 11/28/17 09:03 Amiodarone Hcl PO 05/24/18 20:59 200 mg BID BAKARI Administration Apixaban 2.5 mg 11/25/17 21:00 11/28/17 09:02 Eliquis PO 05/24/18 20:59 2.5 mg BID BAKARI Administration Aspirin 81 mg 11/25/17 21:00 11/27/17 21:12 Aspirin PO 05/24/18 20:59 81 mg HS BAKARI Administration Atorvastatin Calcium 10 mg 11/25/17 21:00 11/27/17 21:11 Lipitor PO 05/24/18 20:59 10 mg HS BAKARI Administration Cholecalciferol 1,000 units 11/28/17 08:00 11/28/17 08:58 Vitamin D PO 05/27/18 07:59 1,000 units Q3D BAKARI Administration Furosemide 80 mg 11/26/17 09:00 11/28/17 09:03 Lasix Injection IVP 05/25/18 08:59 80 mg BIDDIUR BAKARI Administration Glipizide 5 mg 11/25/17 18:00 11/28/17 09:17 Glucotrol PO 05/24/18 17:59 Not Given BIDMEAL BAKARI Metoprolol Tartrate 25 mg 11/25/17 21:00 11/28/17 09:02 Lopressor PO 05/24/18 20:59 25 mg BID BAKARI Administration Miscellaneous Medication 0.75 mg 11/29/17 09:00 Dulaglutide [Trulicity] SQ 05/28/18 08:59 SA BAKARI Ondansetron HCl 4 mg 11/25/17 10:31 Zofran IVP 05/24/18 10:30 Q4HRS PRN Nausea/Vomiting, Can't Take PO Ondansetron HCl 4 mg 11/25/17 10:31 Zofran Odt PO 05/24/18 10:30 Q4HRS PRN Nausea/Vomiting, Use 1st Vitamin B Complex 1 ea 11/28/17 08:00 11/28/17 09:03 Vitamin B Complex PO 05/27/18 07:59 1 ea Q3D BAKARI Administration Discontinued Medications Generic Name Dose Route Start Last Admin Trade Name Freq PRN Reason Stop Dose Admin Furosemide 80 mg 11/25/17 16:35 11/25/17 17:17 Lasix Injection IVP 11/25/17 16:36 80 mg ONCE ONE Administration Insulin Glargine 12 units 11/25/17 21:00 11/27/17 14:13 Lantus Syringe SC 05/24/18 20:59 Not Given BID BAKARI Metolazone 2.5 mg 11/28/17 09:00 11/28/17 08:59 Zaroxolyn PO 11/28/17 09:01 2.5 mg ONCE ONE Administration Physical Exam - Physical Exam General Appearance: alert, no apparent distress Respiratory: lungs clear, normal breath sounds Cardiac/Chest: regular rate, rhythm, edema, JVD Abdomen: normal bowel sounds, non-tender, other (distended) Skin: normal color, warm/dry Neuro/Psych: alert, normal mood/affect, oriented x 3 ICD10 Worksheet Patient Problems: Problems Problem Status Onset Anasarca Acute Chronic Disease Mgmt/Transitional Care Acute Combined systolic and diastolic heart failure Acute
--- NOTE | 2017-11-28 17:44 | GDS ---
[f rep st] DISCHARGE SUMMARY NEW AND ACUTE DIAGNOSES ON THIS ADMISSION: 1. [id number] diastolic congestive heart failure with volume overload and possible right-sided heart failure. 2. Chronic kidney disease, stage 3. 3. Ascites questionably secondary to liver disease. 4. Hyponatremia with a sodium of 133. 5. Diabetes mellitus. 6. Electrolytes disturbances with a sodium of 134, magnesium initially elevated at 2.7, and phosphor ous elevated at 5.0. CHRONIC DIAGNOSES: 1. Diabetes mellitus. 2. Hyperlipidemia. 3. Atrial fibrillation currently on amiodarone and Eliquis. 4. Coronary artery disease with known diffuse disease and an ejection fraction of 35% in 2015, which is believed to have improved. CONSULTATIONS: Nephrology, Gastroenterology, and Cardiology. PROCEDURES: 1. An extremity venous study showing no evidence of deep venous thrombosis. 2. Pulmonary nuclear VQ scan showing low probability for a pulmonary embolus. HOSPITAL COURSE: This is an 82-year-old gentleman who developed peripheral edema, abdominal distenti on, and shortness of breath. He presented with shortness of breath and was thought to have decompens ation of diastolic congestive heart failure. He was noted to have ascites and an elevated creatinine . Nephrology felt there may be a cardiorenal syndrome occurring with current creatinine at 2.4. The remaining question as to the etiology of his ascites, as to whether it was liver disease or heart di sease, and consideration had been given to a right heart catheterization with possible measurement of both right heart pressures and portal pressures, but this was delayed because the gentleman has been taking Eliquis. Thus, the gentleman was aggressively diuresed with metolazone an IV Lasix, and succ essfully diuresed approximately 2-3 kg. The abdominal distention declined as did the peripheral tabitha a. As the gentleman was on Eliquis, the right heart catheterization and portal pressure measurement was delayed. Also, consideration was given for a liver biopsy at that time, which would be useful in yefri gnosis of the etiology of his ascites, whether it is liver disease or heart related. The exact cause of his renal failure remains unclear, although he is a diabetic. Note that the creatinine during th e hospitalization did not decline with diuresis. DISCHARGE MEDICATIONS: New medications: Lasix 40 mg tablets 2 tablets p.o. b.i.d., Klor-Con 10 mEq p.o. b.i.d. Discontinued medication: Lasix 40 mg b.i.d. thus that is a change of dosage. Continued medications: Herbal supplementation, vitamin D3, vitamin B complex, Zocor 20 mg h.s., glip izide 5 mg b.i.d., dulaglutide 0.75 mg sub Q on Friday, Lantus insulin 12-15 units subcu b.i.d., me tolazone 2.5 mg h.s., Lopressor 25 mg b.i.d., apixaban 2.5 mg b.i.d., amiodarone 200 mg twice daily, ASA 81 mg a day. Again, I have changed the dose of Lasix from 40 mg b.i.d. daily to 80 mg b.i.d. for the next 2 weeks only. The gentleman is also on a fluid restriction of 1200 cc a day. He is to perform daily weights. A pr escription has been given for him to obtain a CBC and AN electrolyte panel [facility] [address] [facility]. Followup will be with Dr. Juan Francisco Briones in approximately 1 week. At that time, further consideration as to his right heart cath and measurement of portal pressures will be made. A liver biopsy would be helpful at that time. LABORATORIES: Of note at the time of discharge, his sodium was 134, creatinine 2.5. WBC 6.6, hemogl obin 11.3. Albumin 3.5. Liver function was normal. Potassium 4.2, magnesium was 2.7, phosphorus 5. 0. TIME: This discharge required 50 minutes, greater than 50% to in house counsel and coordinate his care with smith armenta with Dr. Rojas Araujo. /[id number]/MODL
[2017-11-29] MEDS ORDERED: Dulaglutide [Trulicity] 0.75 MG SQ SCH (09:00)
== END 2017-11-28 17:59 | disposition home or self-care (01) | DRG 292 ==
LOC: F2W 14:03 → OBSVTOIN 17:04
PROVIDERS: ADMIT Internal Medicine; ATTEND Internal Medicine
DX: I11.0 Hypertensive heart disease with heart failure (principal); I50.33 Acute on chronic diastolic (congestive) heart failure; N17.9 Acute kidney failure, unspecified; E11.22 Type 2 diabetes mellitus with diabetic chronic kidney disease; N18.3 Chronic kidney disease, stage 3 (moderate); R18.8 Other ascites; K74.60 Unspecified cirrhosis of liver; E87.1 Hypo-osmolality and hyponatremia; E11.40 Type 2 diabetes mellitus with diabetic neuropathy, unspecified; Z53.09 Procedure and treatment not carried out because of other contraindication; Z79.4 Long term (current) use of insulin; I25.10 Atherosclerotic heart disease of native coronary artery without angina pectoris; I48.0 Paroxysmal atrial fibrillation; E78.5 Hyperlipidemia, unspecified; M48.00 Spinal stenosis, site unspecified; Z79.01 Long term (current) use of anticoagulants; Z87.891 Personal history of nicotine dependence
CPT/HCPCS: 97165-GO; A9540; A9558; G8987-GO-CI; G8988-GO-CI; G8989-GO-CI; J1815; J1940

== ENCOUNTER → 2017-12-05 | Day surgery (SDC) | payer OTHER, MEDICARE ==
[~2017-12-05] MED LIST changes: +ASPIRIN EC 325 MG TAB PO ONE; +ATROPINE SULFATE 1 MG/10 ML SYR IVP PRN; +ATROPINE SULFATE 1 MG/10 ML SYR ONE; +DIAZEPAM 5 MG TAB PO ONE; +FAMOTIDINE 20 MG TAB PO ONE; -GADOBUTROL 10 ML VIAL IVP ONE; +HYDROCODONE/APAP 5/325 TAB PO PRN; +IOPAMIDOL (ISOVUE-300) 50 ML VIAL ONE; +LIDOCAINE 1% 300 MG/30 ML SDV ONE; +MIDAZOLAM 2 MG/2 ML VIAL ONE; +NITROGLYCERIN 0.4 MG BTL SL PRN; +NS 1,000 ML IV ONE; +ONDANSETRON 4 MG/2 ML VIAL IVP PRN; +OXYCODONE/APAP 5/325 TAB PO PRN; +diphenhydrAMINE 25 MG CAP PO ONE; +fentaNYL 100 MCG/2 ML INJ ONE
--- NOTE | 2017-12-05 11:56 | CPEKG ---
Heart Rate: 69 RR Interval: 870 QRSD Interval: 130 QT Interval: 528 QTC Interval: 566 QRS [place]: -69 T Wave Kirkwood: 144 EKG Severity - ABNORMAL ECG - EKG Impression: ATRIAL FIBRILLATION EKG Impression: NONSPECIFIC IVCD WITH LAD EKG Impression: CONSIDER ANTEROSEPTAL INFARCT Electronically Signed By: Obey Dawson 05-Dec-2017 17:03:01
[2017-12-05 12:19] LABS: PLATELET COUNT 276 10^3/uL (150-400)
[2017-12-05 12:30] LABS: INR 1.53 (0.83-1.16); PROTIME(PATIENT) 18.5 SEC (12.0-15.0)
--- NOTE | 2017-12-05 13:33 | PDHPUP ---
History & Physical Update H&P update statement: This history and physical update is based on an assessment of the patient which was completed after admission or registration (within 24 hours), but prior to the surgery/procedure. H&P update: H&P reviewed & patient examined, no change in patient's condition since H&P completed
--- NOTE | 2017-12-05 13:33 | PDPROPOC ---
Sedation Plan of Care Sedation Plan of Care: vital signs stable, mental status noted, patient educated of risks, benefits, alternatives, patient can tolerate sedation ASA Classification: ASA 2 Planned drugs: fentanyl, midazolam Mallampati Score: Class 2 Mallampati Reference Image: Patient passed 3-3-2 rule?: Yes
--- NOTE | 2017-12-05 16:59 | POSTOPPROG ---
Post Op Note Date of Operation: 12/05/17 Surgeon: Diana Kay Anesthesia: IV Sedation Pre-op Diagnosis: CHF Post-op Diagnosis: biventricular CHF Indication: CHF Procedure: RHC Findings: see dication. Elevated right heart pressures and elevated PCW Inf/Abcess present in the surg proc area at time of surgery?: No EBL: Minimal Complications: none
--- NOTE | 2017-12-05 17:50 | CPIP ---
[f rep st] INVASIVE CARDIAC PROCEDURE DATE OF PROCEDURE: 12/05/2017 PROCEDURE PERFORMED: Right heart catheterization. INDICATIONS: Recalcitrant heart failure. COMPLICATIONS: None. DESCRIPTION OF PROCEDURE: N.p.o. status was confirmed, informed consent obtained, time-out performed. The 1st part of the procedure was done by Dr. Jaci Gonzalez of Interventional Radiology. Please see her separate dictation. She performed a portal vein wedge pressure indicating that there was no evidence of portal hypertension. We then went on to right heart catheterization. A 5-[place] was placed in the 8-[place] internal jugular sheath that had been placed by Dr. Gonzalez. FINDINGS: HEMODYNAMICS: IVC pressure is 23. Hepatic vein pressure is 23. Hepatic vein occlusive pressure is 24, indicating no gradient across the liver circulation. SVC pressure 21, RA pressure 22, RV pressure is 47/14 with an end- diastolic pressure of 21. PA pressure 46/25 with a mean of 36. Pulmonary capillary wedge pressure is 29 with V-waves to 38. SATURATIONS: IV saturation 76%. SVC saturation 68%. RV pressure 65%. PA pressure 66%. RA 65%. The patient's peripheral arterial oxygen saturation was 100% on 4 L nasal cannula. Calculated Kia cardiac output is 2.74 L/min with an index of 1.83 L/min per sq meter. We did not perform left heart catheterization as the patient has taken Eliquis less than 24 hours prior to the procedure. The patient was taken in stable condition to the CVC. Will be discharged home after adequate hemostasis from his removal of his right internal jugular sheath. CONCLUSIONS: 1. Biventricular heart failure; consider infiltrative cardiomyopathy. 2. No evidence of portal hypertension. 3. Continue heart failure management. Medication changes: stop lasix. Start torsemid 40 mg QD. Stop metolazone. Follow up with Dr. Briones next week as scheduled. UPEP and SPEP sent the day of this procedure. Results discussed with Dr. Gonzalez and Dr. Briones. Patient currently in stable condition. Copy requested to: Primary Care Physician /[id number]/MODL MTDD
== END | disposition home or self-care (01) ==
LOC: FCATH 11:28
PROVIDERS: ATTEND Internal Medicine Cardiovascular Disease
PROC: 4A023N6 Measurement of Cardiac Sampling and Pressure, Right Heart, Percutaneous Approach (ICD-10-PCS; principal; 2017-12-05)
PROC: 06H833Z Insertion of Infusion Device into Portal Vein, Percutaneous Approach (ICD-10-PCS; 2017-12-05)
DX: I50.33 Acute on chronic diastolic (congestive) heart failure (principal); R06.02 Shortness of breath; R60.9 Edema, unspecified
CPT/HCPCS: 36481; 75889; 93005; 93451; C1769; C1725; J0461; J1644; J2250; J3010; Q9967